=== PATIENT | female | born 1975 | race Caucasian/White ===

== ENCOUNTER → 2020-04-19 08:11 | Outpatient (CLI) | payer OTHER, SELFPAY ==
[2020-04-19 09:56] LABS: Coronavirus 19 IgG Antibody Negative (Negative); Coronavirus 19 IgM Antibody Negative (Negative)
== END ==
PROVIDERS: Visit Provider Anesthesiology
DX: Z03.818 Encounter for observation for suspected exposure to other biological agents ruled out (principal)
CPT/HCPCS: 86328

== ENCOUNTER 2020-04-29 02:46 | Emergency (ER) | payer OTHER, SELFPAY ==
[2020-04-29] VITALS (16 sets, daily range): BP systolic 92–140; BP diastolic 56–84; PULSE 50–120; RESP 13–22; TEMP 36.6–36.7; O2SAT 95–100; BMI 21.4
--- NOTE | 2020-04-29 03:00 | PC.NURSE ---
at bedside, reviewed ekg. new orders noted.
--- NOTE | 2020-04-29 03:01 | XR_ITS ---
PROCEDURE: XR CHEST 2V CLINICAL HISTORY: palpitations COMPARISON: No exams were available for comparison FINDINGS: The cardiomediastinal silhouette and pulmonary vascularity are within normal limits. There is faint increased density in both apices which are nonspecific. Stability may be confirmed with follow-up. The remaining lungs are clear. No acute bony abnormalities. IMPRESSION: Faint opacities in both lung apices nonspecific. Stability may be confirmed with follow-up. No acute finding Dictated by: Shaw Phelan MD 04/29/2020 04:58 Shaw Phelan MD in [place] 04/29/2020 04:58
--- NOTE | 2020-04-29 03:01 | ECG_ITS ---
APPROVED REPORT Exam: Resting ECG HR:54 bpm ECG Measurements Heart Rate 54 AXES WI 184 P 73 QRSd 94 QRS 73 QT 428 T 75 QTc 405 Conclusion Sinus bradycardia with sinus arrhythmia Otherwise normal ECG Electronically signed by : Rd Zhang, 04/30/2020 19:37:11
--- NOTE | 2020-04-29 03:12 | PC.NURSE ---
called smokehouse operator at request of patient to alert to er status and that she would be calling in for today
[2020-04-29 03:14] LABS: Anion Gap 12.8 mEq/L (5-15); Basophils # 0.1 K/mm3 (0-0.2); Basophils % 0.8 % (0.1-2.0); Blood Urea Nitrogen 19 mg/dl (7-17); Calcium 10.2 mg/dl (8.4-10.2); Carbon Dioxide 28 mmol/L (22.0-30.0); Chloride 103 mmol/L (98-107); Creatinine Clearance Estimated 90 mL/min (50-200); Eosinophils # 0.1 K/mm3 (0.0-0.4); Eosinophils % 1.3 % (0.1-12.0); Estimated Glomerular Filt Rate 77 ml/min (>60); GFR (African American) 93 ML/MIN (>60); Glucose 105 mg/dl (74-100); Hematocrit 46.4 % (37.0-47.0); Hemoglobin 15.9 g/dL (12.2-16.2); Lymphocytes # 5.1 K/mm3 (0.7-4.5); Lymphocytes % 59.3 % (10-50); Mean Corpuscular HGB Conc 34.4 g/dL (31.8-35.4); Mean Corpuscular Hemoglobin 33.2 pg (27.0-31.2); Mean Corpuscular Volume 96.6 fl (81-99); Mean Platelet Volume 8.4 fl (7.4-10.4); Monocytes # 0.7 K/mm3 (0.1-1.0); Monocytes % 7.6 % (1.7-9.3); Neutrophils # 2.7 K/mm3 (1.8-7.8); Neutrophils % 30.9 % (37.0-80.0); Platelet Count 235 K/mm3 (142-424); Potassium 3.8 mmoL/L (3.5-5.1); Red Cell Distribution Width 12.7 % (11.5-17.5); Sodium 140 mmol/L (136-145); White Blood Count 8.6 K/mm3 (4.8-10.8)
[2020-04-29 03:20] LABS: MANUAL DIFFERENTIAL MANUAL DIFFERENTIAL (MANUAL DIFF)
[2020-04-29 03:28] LABS: Troponin I < 0.01 ng/ml (0.00-0.034)
--- NOTE | 2020-04-29 03:28 | PC.NURSE ---
incr diltiazem to 7.5mg at this time
[2020-04-29 03:32] LABS: T4 (Thyroxine) 7.3 ug/dl (5.53-11.0)
[2020-04-29 03:39] LABS: Coronavirus 19 IgG Antibody Negative (Negative); Coronavirus 19 IgM Antibody Negative (Negative)
[2020-04-29 03:45] LABS: Lymphocytes % 65 % (10-50); Monocytes % 3 % (2-9); Neutrophils % 32 % (42-76); Platelet Estimate Normal; RBC Morphology Normal; Thyroid Stimulating Hormone 2.95 uIU/mL (0.465-4.68); Total Cells Counted 100
--- NOTE | 2020-04-29 03:49 | PC.NURSE ---
remains present at bedside. continuing to monitor cardiac status
--- NOTE | 2020-04-29 04:01 | PC.NURSE ---
incr diltiazem to 10mg at this time.
[2020-04-29 04:24] LABS: Microscopic, Urine URINE MICROSCOPIC (MICROSCOPIC)
[2020-04-29 04:28] LABS: Appearance,Urine CLEAR (Clear); Bilirubin,Urine Negative (Negative); Blood, Urine Negative (Negative); Color,Urine YELLOW (Yellow); Glucose,Urine (UA) Negative (Negative); Ketones,Urine Negative (Negative); Leukocyte Esterase,Urine Negative (Negative); Nitrate,Urine Negative (Negative); Protein,Urine Negative (Negative); Urobilinogen,Urine 0.2 EU/dl (0.2)
--- NOTE | 2020-04-29 04:54 | HMH.EDARPALP ---
ED Disposition Clinical Impression: Atrial fibrillation Qualifiers: Atrial fibrillation type: unspecified Qualified Code(s): I48.91 - Unspecified atrial fibrillation Atrial flutter Qualifiers: Atrial flutter type: unspecified Qualified Code(s): I48.92 - Unspecified atrial flutter Disposition: Home, Self-Care Condition on Discharge: Good Instructions: DI for Atrial Flutter Additional Instructions: use meds and see pcp and card for follow up Referrals: Shane Hall MD [Primary Care Provider] - Ebenezer Negrete MD [Staff Physician] - - Critical Care Critical Care Time: No Attestation: On 04/29/20, the high probability of a clinically significant, sudden or life threatening deterioration of the following system(s) required my full and direct attention, intervention and personal management. The time I documented below is in addition to time spent performing reported procedures but includes the following listed in this critical care notation. Medical Decision Making - Medical Records Medical records reviewed: Yes: I reviewed the patient's medical records. - Basil Inquiry Pt receiving controlled substance: No Vital Signs: 04/29/20 02:47 04/29/20 03:00 04/29/20 03:47 Temperature 98.1 F Temperature Source Oral Pulse Rate [Left Radial] 120 H 91 H 100 H Respiratory Rate 17 22 14 Blood Pressure [Right Arm] 140/84 132/78 121/69 Blood Pressure Mean [Right Arm] 102 96 86 Blood Pressure Source [Right Arm] Automatic Cuff Automatic Cuff Automatic Cuff Blood Pressure Position [Right Arm] Sitting Sitting Sitting 02 Sat by Pulse Oximetry 100 100 100 Oxygen Delivery Method Room Air Room Air 04/29/20 04:06 04/29/20 04:30 04/29/20 05:00 Temperature Temperature Source Pulse Rate [Left Radial] 112 H 107 H 81 Respiratory Rate 14 14 14 Blood Pressure [Right Arm] 110/73 109/66 L 101/65 L Blood Pressure Mean [Right Arm] 85 80 77 Blood Pressure Source [Right Arm] Automatic Cuff Blood Pressure Position [Right Arm] 02 Sat by Pulse Oximetry 98 96 95 Oxygen Delivery Method Room Air 04/29/20 05:30 04/29/20 06:00 04/29/20 06:30 Temperature Temperature Source Pulse Rate [Left Radial] 84 111 H 92 H Respiratory Rate 16 16 17 Blood Pressure [Right Arm] 109/74 L 114/83 111/62 Blood Pressure Mean [Right Arm] 85 93 78 Blood Pressure Source [Right Arm] Automatic Cuff Automatic Cuff Automatic Cuff Blood Pressure Position [Right Arm] Sitting Sitting Sitting 02 Sat by Pulse Oximetry 97 98 98 Oxygen Delivery Method Room Air Room Air Room Air 04/29/20 08:00 04/29/20 09:25 04/29/20 09:52 Temperature Temperature Source Pulse Rate [Left Radial] 83 56 L 52 L Respiratory Rate 20 14 Blood Pressure [Right Arm] 109/78 L 97/63 L 103/64 L Blood Pressure Mean [Right Arm] 88 74 77 Blood Pressure Source [Right Arm] Automatic Cuff Automatic Cuff Automatic Cuff Blood Pressure Position [Right Arm] Sitting Sitting Sitting 02 Sat by Pulse Oximetry 98 96 95 Oxygen Delivery Method Room Air Room Air Room Air - Lab Data Lab results reviewed: Yes: I reviewed the patient's lab results. Lab Results 04/29/20 02:55: WBC 8.6, RBC 4.80, Hgb 15.9, Hct 46.4, MCV 96.6, MCH 33.2 H, MCHC 34.4, RDW 12.7, Plt Count 235, MPV 8.4, Neut % (Auto) 30.9 L, Lymph % (Auto) 59.3 H, [place] % (Auto) 7.6, Eos % (Auto) 1.3, Baso % (Auto) 0.8, Neut # (Auto) 2.7, Lymph # (Auto) 5.1 H, [place] # (Auto) 0.7, Eos # (Auto) 0.1, Baso # (Auto) 0.1, Total Counted 100, Neutrophils % (Manual) 32 L, Lymphocytes % (Manual) 65 H, Monocytes % (Manual) 3, Platelet Estimate Normal, RBC Morphology Normal 04/29/20 02:55: Sodium 140, Potassium 3.8, Chloride 103, Carbon Dioxide 28, Anion Gap 12.8, BUN 19 H, Creatinine 0.80, Estimated Creat Clear 90, Estimated GFR 77, Est GFR ( Amer) 93, Glucose 105 H, Calcium 10.2, Troponin I < 0.01, TSH 2.95, Thyroxine (T4) 7.3 04/29/20 02:55: SARS-CoV-2 IgG Ab (Rapid) Negative, SARS-CoV-2 IgM Ab (Rapid) Negative 04/29/20 02:
[2020-04-29 04:56] LABS: Squamous Epithelial Cell,Urine Occasional #/hpf (0-5)
--- NOTE | 2020-04-29 05:00 | PC.NURSE ---
increased diltiazem to 12.5 mg
[2020-04-29 05:01] LABS: Barbiturates Screen,Urine Negative ng/ml (<200); Benzodiazepines Screen,Urine Negative ng/ml (<200)
[2020-04-29 05:02] LABS: Cocaine Screen,Urine Negative ng/ml (<300)
[2020-04-29 05:03] LABS: Methadone Screen,Urine Negative ng/ml (<300)
[2020-04-29 05:04] LABS: Cannabinoid Screen,Urine Negative ng/ml (<50); Phencyclidine Screen,Urine Negative ng/ml (<25)
[2020-04-29 05:05] LABS: Opiate Screen,Urine Negative ng/ml (<300)
[2020-04-29 05:07] LABS: Amphetamine/Metha Screen,Urine Negative ng/ml (<1000)
--- NOTE | 2020-04-29 07:25 | PC.NURSE ---
incr to 15 mg
--- NOTE | 2020-04-29 07:30 | PC.NURSE ---
cv lab at bedside. echo in progress. lab at bedside. additional blood sent up.
--- NOTE | 2020-04-29 07:56 | PC.NURSE ---
KADEN GAN placed new orders on pt, notified lab
--- NOTE | 2020-04-29 07:58 | PC.NURSE ---
KADEN GAN sent EKG to Dr. Negrete at this time
--- NOTE | 2020-04-29 08:00 | CA_ITS ---
APPROVED REPORT EXAM: Comprehensive 2D, Doppler, and color-flow Echocardiogram Legal Executive Assistant: Ashlyn DesouzaCOURTNEY Ht: 5 ft 9 in Wt: 145lbs BSA: 1.80 BP: 120/69 mmHg Indications: a-fib/flutter,palps,anxiety 2D Dimensions LVOT 1.70 cm (M/F) 1.5-2.5 M-Mode Dimensions RVDd 2.38 cm (0.9-2.6) LA Diam 3.40 cm (1.9-4.0) LVDd 4.35 cm (3.5-5.7) Ao Diam 2.72 cm (2.0-3.7) LVDs 3.00 cm (3.5-5.7) IVSd 1.00 cm (0.6-1.1) PWd 0.59 cm (0.6-1.1) EF (Teich) 59.00% FS 31.00% EDV (Teich) 85.40 mL ESV (Teich) 35.00 mL Pulmonary Valve PV Peak Velocity 79.00 (50-150 cm/s) Tricuspid Valve TR P. Velocity 222.00 cm/s Left Ventricle Left atrium is normal size, left ventricle is normal size, visually estimated ejection fraction 50% with no regional wall motion abnormality, diastolic parameters are inconclusive. Right Ventricle Right atrium and right ventricle are normal size and contractility. Aortic Valve Aortic valve is minimally thickened and fibrosed, there is no aortic stenosis or aortic insufficiency. Mitral Valve Mitral valve is grossly normal, there is trace mitral regurgitation. Tricuspid Valve Tricuspid valve is grossly normal, there is trace tricuspid regurgitation. Tricuspid regurgitation jet velocity is inadequate for calculation of the right ventricular systolic pressure. Pulmonic Valve Pulmonic valve is poorly visualized. Great Vessels Aortic root is normal size. Pericardium No significant pericardial effusion noted. Conclusion 1. Normal left ventricular size, preserved left ventricular systolic function, visually estimated ejection fraction 50% with no regional wall motion abnormality. 2. Trace mitral and tricuspid regurgitation. 3. No significant pericardial effusion noted. Electronically signed by : Alex Shafer, 04/30/2020 05:44:20
--- NOTE | 2020-04-29 08:01 | PC.NURSE ---
ER MD gave verbal order for Metoprolol 5mg IV once.
[2020-04-29 08:16] LABS: Troponin I < 0.01 ng/ml (0.00-0.034)
--- NOTE | 2020-04-29 08:18 | PC.NURSE ---
Pt tolerated metoprolol push. States she feels some better after pushing the medicine
--- NOTE | 2020-04-29 08:28 | PC.NURSE ---
Cardiology SENIOR PARTNER in with pt at this time
[2020-04-29 08:36] LABS: C-Reactive Protein 0.3 mg/L (0-4)
[2020-04-29 08:47] LABS: Erythrocyte Sedimentation Rate 6 mm/hr (0-20)
[2020-04-29 08:54] LABS: Procalcitonin < 0.030 ng/mL (0.0-2.0)
--- NOTE | 2020-04-29 09:15 | PC.NURSE ---
spoke with Dr. Hall, he was wanting an update on pt. Notified him of the place from cardiology.
--- NOTE | 2020-04-29 09:22 | PC.NURSE ---
ELHAM SUE W/CARDIOLOGY CAME AND SEEN PT WE ARE GONNA GIVE DILTIAZEM 240MG PO AND XARELTO 20MG PO AFTER 1 HR WE ARE GONNA STOP HER DRIP THEN WATCH PT FOR 2 HRS THEN DISCHARGE . PT IS TO COME INTO CARDIOLOGY OFFICE AT 9AM ON 04/30
--- NOTE | 2020-04-29 09:50 | PC.NURSE ---
BREAKFAST TRAY ORDERED
--- NOTE | 2020-04-29 10:14 | PC.NURSE ---
DRIP TO BE D/C'D AT 1110
--- NOTE | 2020-04-29 10:19 | PC.NURSE ---
Pt converted to NSR at this time on monitor
--- NOTE | 2020-04-29 10:45 | PC.NURSE ---
diltiazem stopped. Bag empty at this time.
--- NOTE | 2020-04-29 10:46 | PC.NURSE ---
Lab at bedside
--- NOTE | 2020-04-29 11:49 | HMH.CNCARD ---
History of Present Illness Consult date: 04/29/20 Requesting physician: Heladio Hall Consult reason: atrial fibrillation Chief complaint: palpitations Additional Medical History:: 1. New onset of Atrial fibrillation/Flutter (04/29/2020) 2. Dyspnea (04/29/2020) 3. Hx of MVP (as a teen) 4. Mild Pericardial effusion (per Echo 04/29/2020) History of present illness: 45 year old female presented to the Ed for increase palpitations and fluttery feeling in chest for the past few hours. Pt stated the fluttery feeling would not ease up and she became very concerned. Pt stated increase shortness of breath with the palpitations. Denied chest pain, tightness or pressure. Denies fever, nausea or vomiting. New onset Atrial fib/A flutter, pt was started on Cardizem drip at 10mg/hr and one dose of Metroprolol 5mg given IVP. Initial workup performed in the ED. New onset Atrial fibrillation/flutter with RVR. Heart rate 120's. Preliminary echo revealed Mild percardial effusion. EF 60%. CXR revealed no acute finding. Lab work was unremarkable. Upon this assessment, EKG revealed atrial fib at controlled rate. BP stable. Pt denies chest pain, tightness or pressure. Pt denies shortness of breath. at bedside. Discuss plan of care with Dr. Negrete. Recommended to start Dilitazem CD 240mg daily po and stop the Cardizem drip one hour after the po dose of Diltiazem. Recommend starting Xarelto 20mg due to new onset atrial fib/flutter. Heart rate is controlled at this time. Pt may be discharged later today pending on how pt's responds to treatment. Pt verbalized understanding of treatment. Explained the importance of taking Xarelto due to decrease the risk of stroke due to new onset of atrial fib/flutter. Pt verbalized understanding. Thank you for letting Cardiology participate in the care of this pt. [facility] History I have reviewed the patient's past medical history: Yes Medical History: Reports:: Anxiety, Depression Denies:: Diabetes Mellitus Type 2, Hyperlipidemia, Hypertension, Seizures *Have you ever received a pneumonia vaccine?: No *Have you received a flu vaccine this season?: Yes Other Surgeries: Yes: No Previous Surgery Amputation: No Fractures: No - *Social History Smoking Status: Never smoker Alcohol Intake: never Substance Use Type: denies use *Occupational Status:: employed *Travel in the last 8 weeks: None - Psychiatric History Pschychiatric History:: Reports:: Anxiety, Depression Family Hx:: Diabetes, Hyperlipidemia, Hypertension Meds Home Medications Medication Instructions Recorded Confirmed Type Sertraline HCl 25 mg PO DAILY 04/29/20 04/29/20 History Allergies Allergy/AdvReac Type Severity Reaction Status Date / Time No Known Allergies Allergy Verified 07/13/18 10:03 Exam Vital signs and Labs for Last 24 Hours: Temp Pulse Resp BP Pulse Ox 98.1 F 52 L 14 92/56 L 97 04/29/20 02:47 04/29/20 10:46 04/29/20 09:52 04/29/20 10:46 04/29/20 10:46 Laboratory Results - last 24 hr 04/29/20 02:55: WBC 8.6, RBC 4.80, Hgb 15.9, Hct 46.4, MCV 96.6, MCH 33.2 H, MCHC 34.4, RDW 12.7, Plt Count 235, MPV 8.4, Neut % (Auto) 30.9 L, Lymph % (Auto) 59.3 H, [place] % (Auto) 7.6, Eos % (Auto) 1.3, Baso % (Auto) 0.8, Neut # (Auto) 2.7, Lymph # (Auto) 5.1 H, [place] # (Auto) 0.7, Eos # (Auto) 0.1, Baso # (Auto) 0.1, Total Counted 100, Neutrophils % (Manual) 32 L, Lymphocytes % (Manual) 65 H, Monocytes % (Manual) 3, Platelet Estimate Normal, RBC Morphology Normal 04/29/20 02:55: Sodium 140, Potassium 3.8, Chloride 103, Carbon Dioxide 28, Anion Gap 12.8, BUN 19 H, Creatinine 0.80, Estimated Creat Clear 90, Estimated GFR 77, Est GFR ( Amer) 93, Glucose 105 H, Calcium 10.2, Troponin I < 0.01, TSH 2.95, Thyroxine (T4) 7.3 04/29/20 02:55: SARS-CoV-2 IgG Ab (Rapid) Negative, SARS-CoV-2 IgM Ab (Rapid) Negative 04/29/20 02:55: ESR 6 04/29/20 04:18: Urine Color Yellow, Urine Appearance Clear, Urine pH 8.0, Ur Specif
--- NOTE | 2020-04-29 12:27 | PC.NURSE ---
just spoke with ELHAM SUE PT'S 2 HOUR CLEOPATRA AFTER DRIP BEING DC'D IS ALMPOST UP SHE IS GONNA COME BACK AND SEE HER AND GET HER READY FOR DISCHARGE
--- NOTE | 2020-04-29 12:28 | PC.NURSE ---
Pt sitting up eating at this time.
--- NOTE | 2020-04-29 13:13 | PC.NURSE ---
Pt has appointment with Dr Negrete tomorrow morning at 0900
[2020-04-29 18:41] LABS: Troponin I < 0.01 ng/ml (0.00-0.034)
== END 2020-04-29 13:27 | disposition home or self-care (01) ==
PROVIDERS: Emergency Provider Emergency Medicine; PCP Family Medicine
DX: I48.91 Unspecified atrial fibrillation (principal); I48.92 Unspecified atrial flutter; F41.8 Other specified anxiety disorders; Z01.84 Encounter for antibody response examination; Z79.899 Other long term (current) drug therapy
CPT/HCPCS: 36415; 71046; 80048; 80305; 81001; 84145; 84436; 84443; 84484; 85007; 85025; 85651; 86140; 86328; 93005; 93306; 96365; 96367; 96375; 99284

== ENCOUNTER → 2020-05-02 09:18 | Outpatient (CLI) | payer OTHER, SELFPAY ==
--- NOTE | 2020-05-02 09:19 | CA_ITS ---
APPROVED REPORT Exam: Exercise Treadmill Technologist: Kenia Fields, Ht: 5 ft 9 in Wt: 142 lbs BSA: 1.79 m2 HR: 85 bpm BP: 120/75 mmHg Rhythm: NSR,RIGHTWARD AXIS Medical History Medical History: Atrial Fibrillation Medications: XaRELTO,,,,, Deltiazem,,,,, SertraliINE,,,,, Allergies: No known drug allergies Stress Test Details Test: Alicia HR Resting HR: 67 bpm Max Heart Rate (APMHR): 173 bpm Max HR Achieved: 168 bpm Target HR (85% APMHR): 147 bpm % of APMHR: 97 Recovery HR: 144 bpm BP Resting BP: 124.0/83.0 mmHg Max BP: 148.0/80.0 mmHg Recovery BP: 128.0/74.0 mmHg ECG Resting ECG: NSR,RIGHTWARD AXIS Clinical Exercise duration: 10:02 min Highest Stage Achieved: Exercise capacity: 12.8 METs Stress ECG Conclusion PATIENT EXERCISED 10:02 ON ALICIA PROTOCOL. MAX HR 168 BPM WHICH IS 97% OF PM FOR AGE. MAX BP 148/80. METS = 12.8. TEST STOPPED DUE TO SOA AND FATGUE. NO ARRHYTHMIAS/ECTOPY. NORMAL ST RESPONSE TO EXERCISE. NORMAL GXT. GXT ONLY(NO IMAGING) Test Summary REST . . . . . . . Sitting REST . . . . . . . Standing REST 03:59 0.0 0.0 67 . 124/ 83 . . Stage 1 01:00 10.0 1.7 89 . . . . Stage 1 02:00 10.0 1.7 93 . . . . Stage 1 03:00 10.0 1.7 88 . . . . Stage 2 01:00 12.0 2.5 106 . . . . Stage 2 02:00 12.0 2.5 108 . . . . Stage 2 03:00 12.0 2.5 112 . 132/ 70 . . Stage 3 01:00 14.0 3.4 126 . . . . Stage 3 02:00 14.0 3.4 138 . . . . Stage 3 03:00 14.0 3.4 142 . 148/ 80 . . Stage 4 01:00 16.0 4.2 165 . . . . Stage 4 01:02 16.0 4.2 166 . . . Stop exercise at 10:02 RECOVERY 01:00 0.0 0.0 134 . . . . RECOVERY 02:00 0.0 0.0 102 . 128/ 74 . . RECOVERY 03:00 0.0 0.0 86 . 143/ 77 . . RECOVERY 04:00 0.0 0.0 82 . 126/ 74 . . RECOVERY 05:00 0.0 0.0 80 . 113/ 78 . . RECOVERY 05:19 0.0 0.0 73 . 113/ 78 . . Electronically signed by : Alex Shafer, 05/02/2020 12:13:12
== END ==
PROVIDERS: PCP Family Medicine; Visit Provider Nurse Practitioner Family
DX: R07.9 Chest pain, unspecified (principal); R94.31 Abnormal electrocardiogram [ECG] [EKG]; I48.0 Paroxysmal atrial fibrillation
CPT/HCPCS: 93017

== ENCOUNTER → 2020-11-28 13:54 | Outpatient (CLI) | payer OTHER, SELFPAY ==
--- NOTE | 2020-11-28 13:58 | XR_ITS ---
PROCEDURE: XR CERVICAL SPINE 5V CLINICAL INDICATION: NECK PAIN, DISORDER OF NECK COMPARISON: No exams were available for comparison FINDINGS: No fracture or dislocation. No lytic or blastic change. There is normal mineralization. Normal alignment. There is degenerative disc disease at C5-C6 with minimal endplate osteophytes. There is minimal foraminal narrowing bilaterally at C5-C6 from uncovertebral hypertrophy Other findings:None. IMPRESSION: Mild degenerative disc disease C5-C6 with mild bilateral foraminal narrowing Dictated by: Shaw Phelan MD 11/28/2020 14:24 Shaw Phelan MD in [place] 11/28/2020 14:24
== END ==
PROVIDERS: PCP Family Medicine; Visit Provider Family Medicine
DX: M54.2 Cervicalgia (principal); M53.82 Other specified dorsopathies, cervical region
CPT/HCPCS: 72050

== ENCOUNTER 2021-05-26 09:22 | Emergency (ER) | payer OTHER, SELFPAY ==
[2021-05-26 09:50] VITALS: BP 138/78; PULSE 62; RESP 18; TEMP 36.6; O2SAT 98; BMI 22.1
--- NOTE | 2021-05-26 10:16 | HMH.EDUTC ---
[facility] Dis[place] Clinical Impression: Viral upper respiratory illness Disposition: Home, Self-Care Condition on Discharge: Good Instructions: Sore Throat, DI for Viral Upper Respiratory Infection -- Adult Additional Instructions: *Monitor Temp, Over the counter Motrin or Tylenol as directed/as needed Tylenol every 4 hours and Motrin every 6 hours (as long as your family doctor has told you that you can take it) for fever or pain. and straight to ER if unable to lower temp less than 101.0 after medication given *Warm salt water gargles may help to soothe the throat *Throat Lozenges *Warm fluids like tea with honey may help to soothe the throat *Sleep elevated *Humidifier/Vaporizer *Flonase 2 sprays in each nostril daily but be aware that it may take 2-3 days before you notice improvement *Bromfed may cause drowsiness. Know how it effects you (your child) before driving, caring for small child, or sending your child to school. Not other antihistamines/allergy medications while taking bromfed Your throat swab was sent for culture. Those results are typically sent to your primary care. Be sure to follow up in 2-3 days with your family doctor/primary care physician if no improvement so they can review those result and treat if necessary. If you don?t have a primary care doctor, I recommend you get one but in the mean time, you will have to return to a walk in clinic Follow up IMMEDIATELY for new or worsening symptoms or no Noticeable improvement over the next 48-72 hours. 911 for difficulty breathing or swallowing Referrals: Shane Hall MD [Primary Care Provider] - As needed Time of Disposition: 11:01 Medical Decision Making - Basil Inquiry Pt receiving controlled substance: No Basil was queried for this patient: No Vital Signs: 05/26/21 09:50 Temperature 97.9 F Temperature Source Oral Pulse Rate [Right Brachial] 62 Respiratory Rate 18 Blood Pressure [Right Arm] 138/78 Blood Pressure Mean [Right Arm] 98 Blood Pressure Source [Right Arm] Automatic Cuff Blood Pressure Position [Right Arm] Sitting 02 Sat by Pulse Oximetry 98 Oxygen Delivery Method Room Air - Lab Data Lab results reviewed: Yes: I reviewed the patient's lab results. Lab Results 05/26/21 10:05: Strep Scn Rapid Clinic Negative 05/26/21 10:05: SARS-CoV-2 (PCR) Not detected, Influenza A Untype (PCR) Not detected, Influenza Type B (PCR) Not detected Orders (Tests/Meds): ORDERS Category Date Time Status Strep Screen Confirmation Stat Micro 05/26/21 10:05 Received [facility] HPI - General Stated complaint: sore throat Time Seen by Provider: 05/26/21 10:16 Mode of Arrival: Ambulatory Source of Information: Patient Limitations: No Limitations Description of Symptoms (Recalled from Triage Doc. by RN): PATIENT C/O SORE THROAT THAT STARTED LAST NIGHT HEENT Symptoms (Recalled from RN notes): Yes Resp Symptoms (Recalled from RN notes): No Skin Symptoms (Recalled from RN notes): No MS Symptoms (Recalled from RN notes): No Functional Status (Recalled from RN notes): WNL - History of Present Illness Provider Complaint: Patient state that she started having sore scratchy throat last night States that it has continued to get worse State that she has not been around anyone that she knows of with strep throat but this morning when her throat was still hurting she came in to get checked - Related Data Home Medications Medication Instructions Recorded Confirmed Sertraline HCl 25 mg PO DAILY 04/29/20 03/04/21 calcium carbonate 600 mg-vitamin 1 tab PO DAILY 02/19/21 03/04/21 D3 5 mcg (200 unit) tablet eutyvznh-cix-dmix 18 mg-FA 400 tab PO 02/19/21 03/04/21 mcg-calcium 500 mg-vit K 50 mcg tablet Previous Rx's Medication Instructions Recorded estradiol 10 mcg vaginal tablet 10 mcg VAGINAL .COMPLEX 30 Days #8 02/19/21 tab diltiazem HCl 120 mg 120 mg PO DAILY #90 cap 03/04/21 capsule,extended release 24 hr rivaroxaban 20 mg ta
[2021-05-26 10:27] LABS: Coronavirus 19, PCR Not Detected (NotDetected); Influenza A, PCR Not Detected (NotDetected); Influenza B, PCR Not Detected (NotDetected); UTC Strep Screen (Rapid) Negative (Negative)
[2021-05-26 11:03] VITALS: BP 138/78; PULSE 62; RESP 18; TEMP 36.6; O2SAT 98
== END 2021-05-26 11:06 | disposition home or self-care (01) ==
PROVIDERS: Emergency Provider Nurse Practitioner; PCP Family Medicine
DX: J06.9 Acute upper respiratory infection, unspecified (principal); I48.91 Unspecified atrial fibrillation; Z20.822 Contact with and (suspected) exposure to COVID-19; F41.8 Other specified anxiety disorders
CPT/HCPCS: 87880; 99203; C9803; G0463; U0003; U0005

== ENCOUNTER → 2022-08-10 15:33 | Outpatient (CLI) | payer OTHER, SELFPAY | PROVIDERS: PCP Family Medicine; Visit Provider Nurse Practitioner | DX: R07.9 Chest pain, unspecified (principal); R00.2 Palpitations; I48.0 Paroxysmal atrial fibrillation; R00.1 Bradycardia, unspecified; R94.31 Abnormal electrocardiogram [ECG] [EKG] | CPT/HCPCS: 93270 ==

== ENCOUNTER → 2022-08-17 06:40 | Outpatient (CLI) | payer OTHER, SELFPAY ==
--- NOTE | 2022-08-17 06:40 | CA_ITS ---
APPROVED REPORT Exam: Exercise Treadmill Technologist: Marlene Morris Ht: 5 ft 9 in Wt: 151 lbs BSA: 1.83 m2 HR: 54 bpm BP: 121/72 mmHg Indications: Chest pain Medical History Medications: Sertraline,,,,, DilTiazem,,,,, RIvaROXABAN,,,,, Stress Test Details Test: [place]ko HR Resting HR: 65 bpm Max Heart Rate (APMHR): 171.790691 bpm Max HR Achieved: 165 bpm Target HR (85% APMHR): 145.261668 bpm % of APMHR: 96.49 Recovery HR: 80 bpm BP Resting BP: 121.0/72.0 mmHg Max BP: 160.0/82.0 mmHg Recovery BP: 142.0/67.0 mmHg ECG Clinical Exercise duration: 06:01 min Highest Stage Achieved: Exercise capacity: 10.1 METs Stress ECG Conclusion Target at 5:00 Symptoms: Shortness of air. No chest pain Arrhythmias/Ectopy: None ST-T Changes: <1.[address] changes. Test Summary REST . . . . . . . Sitting REST . . . . . . . Standing REST 18:49 0.0 0.0 65 . 121/ 72 . . Stage 1 01:00 10.0 1.7 83 . . . . Stage 1 02:00 10.0 1.7 94 . 128/ 70 . . Stage 1 02:09 10.0 1.7 99 . 128/ 70 . . Stage 2 01:00 12.0 2.5 112 . . . . Stage 2 01:59 12.0 2.5 118 . 140/ 78 . . Stage 3 . . . . . . . Myoview Injected Stage 3 01:00 14.0 3.4 147 . . . . Stage 3 01:53 14.0 3.4 165 . . . Stop exercise at 06:01 RECOVERY 01:00 0.0 0.0 138 . 160/ 82 . . RECOVERY 02:00 0.0 0.0 103 . 160/ 82 . . RECOVERY 03:00 0.0 0.0 86 . 147/ 74 . . RECOVERY 03:54 0.0 0.0 78 . 142/ 67 . . Electronically signed by : Alex Shafer MD 08/17/2022 10:54:46
--- NOTE | 2022-08-17 06:40 | CA_ITS ---
APPROVED REPORT EXAM: Comprehensive 2D, Doppler, and color-flow Echocardiogram [employer] Laboratory Director: Zahra Elkins, RCS, RVS Ht: 5 ft 9 in Wt: 151lbs BSA: 1.83 BP: 122/77 mmHg Indications: CP, ABN EKG, HX-PAF 2D Dimensions Aortic Root 2.64 cm LA Volume 14.50 mL Left Atrium 1.85 cm LA Volume Index 7.70 mL/m2 (M/F) 16-34 LVOT 1.77 cm (M/F) 1.5-2.5 M-Mode Dimensions RVDd 2.65 cm (0.9-2.6) LA Diam 3.36 cm (1.9-4.0) LVDd 4.92 cm (3.5-5.7) Ao Diam 3.16 cm (2.0-3.7) LVDs 3.18 cm (3.5-5.7) IVSd 0.80 cm (0.6-1.1) PWd 0.84 cm (0.6-1.1) EF (Teich) 64.60% EPSs 0.10 cm FS 35.40% EDV (Teich) 113.90 mL TAPSE 2.77 (<1.7) ESV (Teich) 40.30 mL LV Diastology E Decel Time 323.00 (160-240 msec) E/A Ratio 1.59 MED E' 13.20 (< 7 cm/sec) MED A' 9.90 cm/s E'/MED E' Ratio 6.13 (>14) LAT E' 11.10 (<10 cm/sec) LAT A' 10.20 cm/s E/LAT E' Ratio 7.29 (>14) Aortic Valve LVOT Max 117.00 (70-110 cm/s) LVOT VTI 22.16 cm AoV Peak Srini. 137.00 (50-130 cm/s) AO Peak GR. 7.50 mmHg AO Mean GR. 3.70 (<5 mmHg) AO VTI 27.68 (18-25 cm) TIKI (VTI) 1.97 (2.5-4.5 cm2) Mitral Valve MV A Velocity 51.00 (40-130 cm/s) E/A Ratio 1.59 MV Decel. Time 323.00 (160-240 ms) Pulmonary Valve PV Peak Velocity 89.00 (50-150 cm/s) Tricuspid Valve TR P. Velocity 200.00 cm/s RAP Estimate 10.00 mmHg RVSP 26.00 mmHg Left Ventricle Left atrium is normal size left ventricle is normal size, estimated ejection fraction 55% with no regional wall motion abnormality, diastolic parameters are within normal range. Right Ventricle Right atrium right ventricular normal size and contractility. Aortic Valve Aortic valve is grossly normal there is no aortic stenosis aortic insufficiency. Mitral Valve Mitral valve is grossly normal, there is no significant mitral regurgitation. Tricuspid Valve Tricuspid valve grossly normal, there is no significant tricuspid regurgitation. Pulmonic Valve Pulmonic valve is poorly visualized. Great Vessels Aortic root is normal size. Inferior vena cava is normal size with normal inspiratory collapse. Pericardium Small pericardial effusion and anterior echo-free space seen. Conclusion 1. Normal left ventricular size preserved left ventricular systolic function, estimated ejection fraction 55% with no regional wall motion abnormality, diastolic parameters are within normal range. 2. Small pericardial effusion and anterior echo-free space seen. 3. Inferior vena cava is normal size with normal inspiratory collapse. Electronically signed by : Alex Shafer MD 08/18/2022 06:03:50
--- NOTE | 2022-08-17 06:40 | NM_ITS ---
APPROVED REPORT Exam: Nuclear Stress Test Indication: DYSRHYTHMIA, A-FIB, C.P., PALPITATIONS Patient Location: Outpatient Stress Tech: Marlene Morris CT Tech:Brigida Ventura ARRPablo RT (R)(N)(M) Ht: 5 ft 9 in Wt: 147 lbs Bra Size: B HR: 54 bpm BP: 121/72 mmHg BSA: 1.81 m2 TID: 1.05 BMI: 21.7 History: DYSRHYTHMIA, A-FIB, C.P., PALPITATIONS Procedure: Patient exercised on Cheko protocol 6:00 minutes and sec, resting heart rate 54 bpm, resting blood pressure 121/72 mmHg, with exercise maximum heart rate achived was 165 bpm which is 96 % of the maximum predicted heart rate and blood pressure was 160/83 mmHg. Test was stopped due to FATIGUE, SOA. Patient has Good exercise capacity, achieved 10.1 METs of workload on treadmill, the blood pressure response to exercise was Adequate. Electrocardiogram Resting electrocardiogram shows sinus rhythm, with exercise there is less than 1.[address] segment depression noted from the baseline EKG. The EKG portion of the exercise Myoview is negative for ischemia. Cardiac Stress and Resting SPECT Images: Cardiac Stress and Resting SPECT images were obtained using technetium 99m Myoview 31.3 mCi stress and 10.19 mCi at rest. Gated SPECT analysis of segmental wall motion and calculation of the ejection fraction also done. Prone images were also obtained. Cardiac stress and rest SPECT images show uniform myocardial activity without segmental perfusion abnormality, computer derived ejection fraction is 55% with no regional wall motion abnormality, right ventricle is normal size and contractility. Conclusion: 1. The EKG portion of the exercise Myoview is negative for ischemia, patient has good exercise capacity achieved 10.1 METs of workload on treadmill, the blood pressure response to exercise was adequate, there was no exercise-induced chest discomfort. 2. No scintigraphic evidence of reversible ischemia seen, computer derived ejection fraction 55% with no regional wall motion abnormality, right ventricle is normal size and contractility. 3. Normal exercise Myoview study. Electronically signed by : Alex Shafer MD 08/17/2022 10:59:26
== END ==
PROVIDERS: PCP Family Medicine; Visit Provider Nurse Practitioner
DX: R07.9 Chest pain, unspecified (principal); R00.2 Palpitations; R00.1 Bradycardia, unspecified; I48.0 Paroxysmal atrial fibrillation; R94.31 Abnormal electrocardiogram [ECG] [EKG]
CPT/HCPCS: 78452; 93017; 93306; A9502

== ENCOUNTER → 2022-09-02 15:13 | Outpatient (CLI) | payer OTHER, SELFPAY | PROVIDERS: PCP Family Medicine; Visit Provider Nurse Practitioner Family | DX: R07.9 Chest pain, unspecified (principal); I31.39 Other pericardial effusion (noninflammatory); I48.0 Paroxysmal atrial fibrillation | CPT/HCPCS: 93308 ==

== ENCOUNTER → 2022-11-26 06:40 | Outpatient (CLI) | payer OTHER, SELFPAY ==
[2022-11-26 07:28] LABS: Basophils % 0.7 % (0.1-2.0); Eosinophils # 0.1 K/mm3 (0.0-0.4); Hematocrit 40.2 % (37.0-47.0); Hemoglobin 13.2 g/dL (12.2-16.2); Lymphocytes # 2.5 K/mm3 (0.7-4.5); Mean Corpuscular HGB Conc 32.8 g/dL (31.8-35.4); Mean Corpuscular Hemoglobin 31.7 pg (27.0-31.2); Mean Corpuscular Volume 96.9 fl (81-99); Mean Platelet Volume 8.2 fl (7.4-10.4); Monocytes # 0.4 K/mm3 (0.1-1.0); Monocytes % 5.6 % (1.7-9.3); Neutrophils # 3.3 K/mm3 (1.8-7.8); Neutrophils % 51.7 % (37.0-80.0); Platelet Count 227 K/mm3 (142-424); Red Blood Count 4.15 M/mm3 (4.20-5.40); Red Cell Distribution Width 12.5 % (11.5-17.5); White Blood Count 6.4 K/mm3 (4.8-10.8)
[2022-11-26 08:12] LABS: Alanine Aminotransferase 17 U/L (12-78); Albumin Level 4.2 g/dl (3.5-5.0); Albumin/Globulin Ratio 1.8 (1.1-1.8); Alkaline Phosphatase 49 U/L (38-126); Anion Gap 8.4 mEq/L (5-15); Aspartate Amino Transferase 25 U/L (14-36); Bilirubin,Total 0.7 mg/dl (0.2-1.3); Blood Urea Nitrogen 16 mg/dl (7-17); Calcium 8.9 mg/dl (8.4-10.2); Carbon Dioxide 29 mmol/L (22.0-30.0); Chloride 104 mmol/L (98-107); Chol/HDL Ratio 1.8 (1-3.5); Cholesterol 147 mg/dl (140-200); Estimated Glomerular Filt Rate 76 ml/min (>60); GFR (African American) 92 ML/MIN (>60); Globulin 2.3 g/dL (1.3-3.2); Glucose 83 mg/dl (74-100); HDL Cholesterol 83 mg/dl (40-60); Potassium 4.4 mmoL/L (3.5-5.1); Sodium 137 mmol/L (136-145); Total Protein,Serum 6.5 g/dl (6.3-8.2); Triglycerides 57 mg/dl (30-150); VLDL Cholesterol 11 mg/dL (0-40)
[2022-11-26 08:23] LABS: Direct LDL Cholesterol 57.35 mg/dL (100-129)
[2022-11-26 08:28] LABS: 25-OH Vitamin D, Total 40.4 ng/mL (30-100)
[2022-11-26 08:30] LABS: Free Thyroxine Index 2.3 ug/dL (5.93-13.13); T4 (Thyroxine) 7.6 ug/dl (5.53-11.0); Triiodothryronine (T3) Uptake 30 % (23.5-40.5)
[2022-11-26 08:43] LABS: Thyroid Stimulating Hormone 1.29 uIU/mL (0.465-4.68)
[2022-11-27 14:28] LABS: FSH 59.2 mIU/mL (.); LH 40.7 mIU/mL (.)
== END ==
PROVIDERS: PCP Family Medicine; Visit Provider Nurse Practitioner Obstetrics & Gynecology
DX: R53.83 Other fatigue (principal); Z79.899 Other long term (current) drug therapy
CPT/HCPCS: 36415; 80053; 80061; 82306; 83001; 83002; 84436; 84443; 84479; 85025

== ENCOUNTER → 2023-04-12 11:27 | Outpatient (CLI) | payer OTHER, SELFPAY ==
--- NOTE | 2023-04-12 11:31 | XR_ITS ---
FINAL REPORT CLINICAL HISTORY: RT WRIST PAIN COMPARISON: None FINDINGS: RIGHT WRIST Three views demonstrate no acute fracture or dislocation. The visualized joint spaces are normally aligned. The soft tissues are unremarkable. IMPRESSION: No acute bony abnormality. Reviewed, Interpreted and Dictated by Alex Brice III, MD Transcribed by Monse Rush Authenticated and [facility]
== END ==
PROVIDERS: PCP Family Medicine; Visit Provider Family Medicine
DX: M25.531 Pain in right wrist (principal)
CPT/HCPCS: 73110

== ENCOUNTER 2023-04-23 08:55 | Emergency (ER) | payer OTHER, SELFPAY ==
[2023-04-23 09:30] VITALS: BP 116/76; PULSE 74; RESP 18; TEMP 36.8; O2SAT 98; BMI 25.2
--- NOTE | 2023-04-23 09:39 | EXP.UTC ---
Discharge Plan Disposition Patient Disposition: Home, Self-Care Condition: Good Prescriptions Prescriptions: New azithromycin [Zithromax] 250 mg tablet 250 mg PO UD DOSE PK Qty: 6 0RF Rx Instructions: Take two (2) tablets today, then one (1) tablet days #2 thru #5 benzonatate [benzonatate] 100 mg capsule 100 mg PO TIDP PRN (Reason: Cough) Qty: 30 0RF methylprednisolone 4 mg Tablets,Dose Pack 4 mg PO DIRECTED Qty: 21 0RF guaifenesin [Mucinex] 600 mg tablet extended release 12hr 600 - 1,200 mg PO BIDP PRN (Reason: Congestion) Qty: 30 0RF No Action Lo Loestrin Fe 1 mg-10 mcg (24)/10 mcg (2) tablet 1 tab PO DAILY Qty: 28 10RF Xarelto 20 mg tablet See Rx Instructions .ROUTE .COMPLEX Qty: 90 2RF Dose Instruction: TAKE ONE TABLET BY MOUTH EVERY DAY with evening meal Rx Instructions: TAKE ONE TABLET BY MOUTH EVERY DAY with evening meal estradiol [Vagifem] 10 mcg tablet 10 mcg vaginal .Twice weekly 30 Days Qty: 8 11RF diltiazem HCl 120 mg capsule,extended release 24hr 120 mg PO DAILY Qty: 90 3RF sertraline 25 MG tablet 25 mg PO DAILY Referrals Follow up/Referrals: Shane Hall MD [Primary Care Provider] - See instructions Activity Restrictions/Add. Instructions Additional Instructions/Restrictions: Drink plenty of fluids. Take tylenol or ibuprofen for pain or fever. Take the medications as directed. Follow up with your regular doctor. GO TO THE ER FOR ANY WORSENING SYMPTOMS Clinical Impressions Clinical Impression: Sinusitis Instructions Patient Instructions: DI for Sinusitis, Sinusitis Discharge ED Provider: Junior Lawson [facility] [place] HPI General Stated complaint: sore throat congestion face pain Time Seen by Provider: 04/23/23 09:39 History of Present Illness Provider Complaint: She states that for the past 3 days she has had sinus congestion, facial pressure, scratchy throat, and a dry cough. She denies fever/chills/body aches. Related Data Home Medications Medication Instructions Recorded Confirmed sertraline 25 mg tablet 25 mg PO DAILY depression 04/29/20 04/23/23 Previous Rx's Medication Instructions Recorded rivaroxaban 20 mg tablet (Xarelto) See Rx Instructions .Route 06/22/23 .COMPLEX #90 tabs norethindrone 1 mg-ethinyl 1 tab PO DAILY #28 tabs 11/18/22 estradiol 10 mcg (24)-iron 10 mcg(2) tablet (Lo Loestrin Fe) estradiol 10 mcg vaginal tablet 10 mcg vaginal .Twice weekly 30 12/27/22 (Vagifem) days #8 tabs diltiazem HCl 120 mg 120 mg PO DAILY #90 caps 02/12/23 capsule,extended release 24 hr azithromycin 250 mg tablet 250 mg PO UD DOSE PK #6 tabs 04/23/23 (Zithromax) benzonatate 100 mg capsule 100 mg PO TIDP PRN Cough #30 caps 04/23/23 guaifenesin 600 mg tablet, 600 - 1,200 mg PO BIDP PRN 04/23/23 extended release 12 hr (Mucinex) Congestion #30 tabs methylprednisolone 4 mg tablets in 4 mg PO DIRECTED #21 tabs 04/23/23 a dose pack Allergies Allergy/AdvReac Type Severity Reaction Status Date / Time No Known Allergies Allergy Verified 04/23/23 09:50 [facility] Disclaimer: The information contained in this section may have been updated after the patient was seen, as this information can be updated by other users. Medical History (Updated 04/23/23 @ 10:05 by Junior Lawson APRN) Abnormal EKG Chest pain Deviated septum New onset atrial fibrillation Pericardial effusion Sinus bradycardia Surgical History History of endometrial ablation Family History Other Diabetes Social History Smoking Status: Never smoker alcohol intake: never substance use type: denies use current occupational status: employed Travel in the last 8 weeks: Inside the [place] ROS Obtained: Yes All systems reviewed & no additional co
[2023-04-23 10:25] VITALS: BP 116/76; PULSE 74; RESP 18; TEMP 36.8; O2SAT 98
== END 2023-04-23 10:25 | disposition home or self-care (01) ==
PROVIDERS: Emergency Provider Nurse Practitioner Family; PCP Family Medicine
DX: J01.90 Acute sinusitis, unspecified (principal); R09.81 Nasal congestion; R07.0 Pain in throat; R05.9 Cough, unspecified
CPT/HCPCS: 99212; 99214; G0463

== ENCOUNTER 2024-08-21 16:00 | Outpatient (CLI) | payer BC, SELFPAY ==
[2024-08-21 16:20] LABS: Basophils # 0.1 K/mm3 (0-0.2); Basophils % 0.7 % (0.1-2.0); Eosinophils # 0.1 K/mm3 (0.0-0.4); Eosinophils % 0.9 % (0.1-12.0); Hematocrit 41.4 % (37.0-47.0); Hemoglobin 14.5 g/dL (12.2-16.2); Lymphocytes # 3.7 K/mm3 (0.7-4.5); Lymphocytes % 39.7 % (10-50); Mean Corpuscular Hemoglobin 33.6 pg (27.0-31.2); Mean Corpuscular Volume 95.8 fl (81-99); Mean Platelet Volume 10.4 fl (7.4-10.4); Monocytes # 0.7 K/mm3 (0.1-1.0); Monocytes % 7.4 % (1.7-9.3); Neutrophils # 4.8 K/mm3 (1.8-7.8); Neutrophils % 51.3 % (37.0-80.0); Platelet Count 250 K/mm3 (142-424); Red Blood Count 4.32 M/mm3 (4.20-5.40); Red Cell Distribution Width 11.9 % (11.5-17.5); White Blood Count 9.4 K/mm3 (4.8-10.8)
[2024-08-21 17:00] LABS: Albumin Level 4.4 g/dl (3.5-5.0); Chloride 103 mmol/L (98-107); Sodium 137 mmol/L (136-145)
[2024-08-21 17:02] LABS: Bilirubin,Unconjugated 0.4 mg/dL (0.0-1.1); Blood Urea Nitrogen 18 mg/dl (7-17); Estimated Glomerular Filt Rate 58 ml/min (>60); GFR (African American) 71 ML/MIN (>60)
[2024-08-21 17:03] LABS: Alanine Aminotransferase 21 U/L (12-78); Alkaline Phosphatase 46 U/L (38-126); Aspartate Amino Transferase 28 U/L (14-36); Bilirubin,Direct 0.1 mg/dl (0.0-0.4); Bilirubin,Indirect 0.4 mg/dL (0.0-0.9); Bilirubin,Total 0.5 mg/dl (0.2-1.3); Calcium 9.2 mg/dl (8.4-10.2); Carbon Dioxide 28 mmol/L (22.0-30.0); Cholesterol 174 mg/dl (140-200); Glucose 91 mg/dl (74-100); Total Protein,Serum 6.6 g/dl (6.3-8.2); Triglycerides 102 mg/dl (30-150); VLDL Cholesterol 20 mg/dL (0-40)
[2024-08-21 17:04] LABS: Chol/HDL Ratio 1.9 (1-3.5); HDL Cholesterol 94 mg/dl (40-60)
[2024-08-21 17:14] LABS: Direct LDL Cholesterol 62.34 mg/dL (100-129)
[2024-08-21 17:19] LABS: Free T4 (Free Thyroxine) 0.81 ng/dl (0.78-2.19)
[2024-08-21 17:34] LABS: Thyroid Stimulating Hormone 1.54 uIU/mL (0.465-4.68)
== END 2024-08-21 23:59 | disposition home or self-care (01) ==
LOC: LAB 16:02
PROVIDERS: PCP Family Medicine; Visit Provider Internal Medicine
DX: I48.0 Paroxysmal atrial fibrillation (principal); R00.2 Palpitations; R94.31 Abnormal electrocardiogram [ECG] [EKG]; Z00.00 Encounter for general adult medical examination without abnormal findings; R07.9 Chest pain, unspecified
CPT/HCPCS: 36415; 80048; 80061; 80076; 84439; 84443; 85025

== ENCOUNTER 2024-12-12 01:04 | Emergency (ER) | payer BC, SELFPAY ==
[2024-12-12] VITALS (11 sets, daily range): BP systolic 112–151; BP diastolic 72–89; PULSE 61–122; RESP 14–21; TEMP 36.8; O2SAT 94–97; BMI 22.8
--- NOTE | 2024-12-12 01:08 | HMH.EDGENADL ---
Discharge Plan Disposition Patient Disposition: Home, Self-Care Prescriptions Prescriptions: No Action Xarelto 20 mg tablet See Rx Instructions .ROUTE .COMPLEX Qty: 90 3RF Dose Instruction: TAKE 1 TABLET BY MOUTH DAILY Rx Instructions: TAKE 1 TABLET BY MOUTH DAILY diltiazem HCl 120 mg capsule,extended release 24hr See Rx Instructions .ROUTE .COMPLEX Qty: 90 3RF Dose Instruction: TAKE 1 CAPSULE BY MOUTH DAILY Rx Instructions: TAKE 1 CAPSULE BY MOUTH DAILY Lo Loestrin Fe 1 mg-10 mcg (24)/10 mcg (2) tablet See Rx Instructions .ROUTE .COMPLEX Qty: 84 3RF Dose Instruction: TAKE 1 TABLET BY MOUTH DAILY Rx Instructions: TAKE 1 TABLET BY MOUTH DAILY sertraline 25 MG tablet 25 mg PO DAILY Referrals Follow up/Referrals: Shane Hall MD [Primary Care Provider, Medical] - See instructions Activity Restrictions/Add. Instructions Additional Instructions/Restrictions: Please follow-up with your head of sales and marketing. Please return to the emergency department if you develop any new or worsening symptoms or become concerned for your health. Clinical Impressions Clinical Impression: PAF (paroxysmal atrial fibrillation), Atrial fibrillation with rapid ventricular response Print Language Print Language: Belgian Discharge ED Provider: Romario Sabillon General Adult HPI General Chief complaint: Arrhythmia/Palpitations Stated complaint: irregular heartbeat Time Seen by Provider: 12/12/24 01:07 History of Present Illness HPI narrative: 49-year-old female with history of accessible A-fib, normally in sinus rhythm, presents for irregular heartbeat. She reports that started about 11 PM. She is on a blood thinner and diltiazem at baseline. She denies any recent change in medications, denies any recent fever or infection. Related Data Home Medications ?Medication ?Instructions ?Recorded ?Confirmed sertraline 25 mg tablet 25 mg PO DAILY depression 04/29/20 08/21/24 Previous Rx's ?Medication ?Instructions ?Recorded diltiazem HCl 120 mg See Rx Instructions .Route 08/21/24 capsule,extended release 24 hr .COMPLEX #90 caps rivaroxaban 20 mg tablet (Xarelto) See Rx Instructions .Route 08/21/24 .COMPLEX #90 tabs norethindrone 1 mg-ethinyl See Rx Instructions .Route 10/24/24 estradiol 10 mcg (24)-iron 10 .COMPLEX #84 tabs mcg(2) tablet (Lo Loestrin Fe) Allergies Allergy/AdvReac Type Severity Reaction Status Date / Time No Known Allergies Allergy Verified 12/12/24 01:13 [facility] Disclaimer: The information contained in this section may have been updated after the patient was seen, as this information can be updated by other users. Medical History Deviated septum Pericardial effusion Sinus bradycardia Abnormal EKG Chest pain New onset atrial fibrillation Surgical History History of endometrial ablation Family History Other Diabetes Social History Smoking Status: Never smoker alcohol intake: never substance use type: denies use current occupational status: employed Travel in the last 8 weeks?: Inside the [place] Have you lived/traveled outside US in past 30 days?: No Contact w/someone who lives/traveled outside US past 30 days?: No Exposure to someone with infectious disease in past 14 days?: No Do you have a fever (greater than 100.4 F or 38 C)?: No Have you tested positive for COVID-19?: No Exposed to someone with COVID-19 in past 14 days?: No Do you have a sore throat?: No Do you have a cough?: No Do you have any weakness?: No Do you have any diarrhea?: No Are you experiencing any unusual bleeding?: No Do you have any muscle aches/pain?: No Do you have any abdominal pain?: No Are you experiencing loss of taste or smell?: No Other Medical History Have you received the Flu Vaccine for this season: Yes Have you received the Pneumonia Vaccine: No ROS Obtained: Yes All systems reviewed & no additional complaints except as documented Physical Exam General General appearance: alert and in no apparent distress Head Head exam: atraumatic and normocephalic Eye Eye exam: Present normal appearance, PERRL and EOMI ENT ENT exam: Present normal oropharynx and normal external ear exam Neck Neck exam: Present normal inspection and full ROM Chest Chest inspection: Present normal inspection and symmetric chest wall rise; Absent tenderness Respiratory Respiratory exam: Present normal lung sounds bilaterally; Absent respiratory distress Cardiovascular Cardiovascular exam: Present tachycardia and irregular rhythm Abdominal Exam Abdominal exam: Present soft; Absent distention, tenderness or guarding Extremities Exam Extremities exam: Present normal inspection; Absent edema or joint swelling Back Exam Back exam: Present normal inspection; Absent tenderness Neurological Exam Neurological exam: Present alert and oriented X3; Absent motor sensory deficit Psychiatric Psychiatric exam: Present normal affect and normal mood Skin Skin exam: Present warm, dry and normal color Lymphatic Lymphatic Findings: no adenopathy Medical Decision Making Medical Records Medical records reviewed: Yes I reviewed the patient's medical records. Screening: Per USPSTF and CDC recommendations, given the prevalence of disease in our region, it is our hospital?s policy to screen for HIV and viral Hepatitis for all patients aged 18 and over and those with ongoing risk factors. Basil Inquiry Pt receiving controlled substance: No Basil was queried for this patient: No Vital Signs: 12/12/24 01:14 12/12/24 01:24 12/12/24 01:30 Temperature 98.2 F Temperature Source Oral Pulse Rate 109 H 67 Pulse Rate [Right] 122 H Respiratory Rate 14 16 16 Blood Pressure Blood Pressure [Right Arm] 151/89 H Blood Pressure Mean Blood Pressure Mean [Right Arm] 109 Blood Pressure Source Blood Pressure Source [Right Arm] Automatic Cuff Blood Pressure Position Blood Pressure Position [Right Arm] Sitting 02 Sat by Pulse Oximetry 94 L 95 96 Oxygen Delivery Method Room Air 12/12/24 01:46 12/12/24 01:46 12/12/24 02:00 Temperature Temperature Source Pulse Rate 62 66 Pulse Rate [Right] Respiratory Rate 15 21 Blood Pressure 116/82 Blood Pressure [Right Arm] Blood Pressure Mean 93 Blood Pressure Mean [Right Arm] Blood Pressure Source Blood Pressure Source [Right Arm] Blood Pressure Position Blood Pressure Position [Right Arm] 02 Sat by Pulse Oximetry 97 96 Oxygen Delivery Method 12/12/24 02:01 12/12/24 02:01 12/12/24 02:15 Temperature Temperature Source Pulse Rate 61 74 Pulse Rate [Right] Respiratory Rate 20 14 Blood Pressure 122/79 Blood Pressure [Right Arm] Blood Pressure Mean 88 Blood Pressure Mean [Right Arm] Blood Pressure Source Blood Pressure Source [Right Arm] Blood Pressure Position Blood Pressure Position [Right Arm] 02 Sat by Pulse Oximetry 95 96 Oxygen Delivery Method 12/12/24 02:30 12/12/24 02:30 12/12/24 02:39 Temperature Temperature Source Pulse Rate 76 Pulse Rate [Right] Respiratory Rate 14 Blood Pressure 119/82 112/74 Blood Pressure [Right Arm] Blood Pressure Mean 87 83 Blood Pressure Mean [Right Arm] Blood Pressure Source Blood Pressure Source [Right Arm] Blood Pressure Position Blood Pressure Position [Right Arm] 02 Sat by Pulse Oximetry 95 Oxygen Delivery Method 12/12/24 02:39 12/12/24 03:00 12/12/24 03:00 Temperature Temperature Source Pulse Rate 61 62 Pulse Rate [Right] Respiratory Rate 21 15 Blood Pressure 118/72 Blood Pressure [Right Arm] Blood Pressure Mean 80 Blood Pressure Mean [Right Arm] Blood Pressure Source Blood Pressure Source [Right Arm] Blood Pressure Position Blood Pressure Position [Right Arm] 02 Sat by Pulse Oximetry 97 97 Oxygen Delivery Method 12/12/24 03:15 Temperature 98.2 F Temperature Source Oral Pulse Rate 62 Pulse Rate [Right] Respiratory Rate 16 Blood Pressure 118/72 Blood Pressure [Right Arm] Blood Pressure Mean Blood Pressure Mean [Right Arm] Blood Pressure Source Automatic Cuff Blood Pressure Source [Right Arm] Blood Pressure Position Sitting Blood Pressure Position [Right Arm] 02 Sat by Pulse Oximetry Oxygen Delivery Method Room Air Lab Data Lab results reviewed: Yes I reviewed the patient's lab results. Lab Results 12/12/24 01:14: WBC 8.9, RBC 4.64, Hgb 15.3, Hct 43.9, MCV 94.6, MCH 33.0 H, MCHC 34.9, RDW 12.0, Plt Count 293, MPV 10.4, Neut % (Auto) 33.9 L, Lymph % (Auto) 52.5 H, Owen % (Auto) 9.2, Eos % (Auto) 3.4, Baso % (Auto) 0.9, Neut # (Auto) 3.0, Lymph # (Auto) 4.7 H, Owen # (Auto) 0.8, Eos # (Auto) 0.3, Baso # (Auto) 0.1, Sodium 137, Potassium 4.0, Chloride 105, Carbon Dioxide 25, Anion Gap 11.0, BUN 11, Creatinine 0.60, Estimated Creat Clear 123, Estimated GFR 105, Est GFR ( Amer) 128, Glucose 101 H, Calcium 9.6, Phosphorus 3.1, Magnesium 2.1, Total Bilirubin 0.9, AST 33, ALT 19, Alkaline Phosphatase 48, Troponin I < 0.01, NT-Pro-B Natriuret Pep 59.0, Total Protein 7.6, Albumin 4.6, Globulin 3.0, Albumin/Globulin Ratio 1.5, TSH 3.69, Thyroxine (T4) 11.1 H, HCV Ab CLAUDINE w/Rflx PCR Qn Negative, HIV Ag/Ab Combo Qual Negative 12/12/24 01:14 12/12/24 01:14 Orders (Tests/Meds): ED MEDICATIONS Discontinued Medications Generic Name Dose Route Start Last Admin Trade Name Freq PRN Reason Stop Dose Admin Diltiazem HCl 20 mg 12/12/24 01:14 12/12/24 01:32 Diltiazem 25mg/5ml Vial IV 12/12/24 01:15 20 mg ONCE ONE Administration Diltiazem HCl 120 mg 12/12/24 01:30 12/12/24 01:44 Diltiazem Er 120mg Capsule PO 12/12/24 01:31 Not Given ONCE ONE Diltiazem HCl 10 mg 12/12/24 02:30 12/12/24 02:29 Diltiazem 25mg/5ml Vial IV 12/12/24 02:31 10 mg ONCE ONE Administration Lactated Ringer's 1,000 mls @ 999 mls/hr 12/12/24 02:30 12/12/24 02:29 Lactated Ringer's 1000 Ml Bag IV 12/12/24 03:30 999 mls/hr .Q1H1M MAHI Administration ORDERS Category Date Time Status BNP [NT Pro Brain Natriuretic Pep.] Stat Lab 12/12/24 01:14 Completed CBC w/Auto Diff [Complete Blood Count Auto Diff] Stat Lab 12/12/24 01:14 Completed CMP [Comprehensive Metabolic Panel] Stat Lab 12/12/24 01:14 Completed HIV Combo Stat Lab 12/12/24 01:14 Completed Hepatitis C Ab Qual. W/ RFX Stat Lab 12/12/24 01:14 Completed Magnesium Stat Lab 12/12/24 01:14 Completed Phosphorous Stat Lab 12/12/24 01:14 Completed T4 (Thyroxine) Stat Lab 12/12/24 01:14 Completed TSH [Thyroid Stimulating Hormone] Stat Lab 12/12/24 01:14 Completed Troponin I Q3H Lab 12/12/24 01:14 Completed ECG Data Tracing #1: I reviewed this ECG and interpreted as documented below: Atrial fibrillation with rapid ventricular rate, rate of 129, moderate ST depressions noted ECG initial impression date: 12/12/24 ECG initial impression time: 01:10 HEART Score History (anamnesis): Slightly suspicious ECG: Non-specific disturbance Age: 45-65 years Risk factors: No known risk factors Troponin: </= normal limit HEART Score: 2 Medical Decision Narrative: 49-year-old female with history of paroxysmal A-fib, on Xarelto and diltiazem, presents for recurrent A-fib which she believes started at 11 PM. History was obtained via interactive discussion with patient, family, chart review. On arrival, patient is [afebrile, hemodynamically stable, satting appropriately, alert, oriented x4, GCS 15], moving all extremities spontaneously. Full physical exam performed and significant for no significant physical exam abnormalities. EKG consistent with A-fib RVR with some rate dependent ST changes. Differential includes but is not limited to electrolyte derangement, ACS, arrhythmia,. Patient took her home oral 120 mg diltiazem shortly prior to arrival. In the ER she was given 20 mg of IV diltiazem with resolution of her RVR, she did not cardiovert however. Labs were independently interpreted by me and showed no significant electrolyte derangement. Troponin negative. I had interactive discussion with patient regarding her presentation. Given she is now at a normal rate and is appropriately anticoagulated, she does not necessarily have to be placed back in sinus rhythm. She reports that she can feel when she is not in rhythm and it is bothersome to her and she would like to try another round of diltiazem, but does not want to go so far as to be cardioverted in the ER tonight. She also does not want to be admitted. Patient was given an additional dose of diltiazem as well as a fluid bolus without conversion to sinus rhythm. Her ST changes resolved with resolution of RVR. After further discussion with patient, she would like to go home and follow-up with her head of sales and marketing. Given this, she was discharged in stable condition with return precautions. Procedures Risk/Benefits of Procedure(s) Were Explained: Yes Critical Care Critical Care Time Critical Care Time: Yes Attestation: On 12/12/24, the high probability of a clinically significant, sudden or life threatening deterioration of the following system(s) cardiac required my full and direct attention, intervention and personal management. The time I documented below is in addition to time spent performing reported procedures but includes the following listed in this critical care notation. Total Time Total Critical Care Time: 45
--- NOTE | 2024-12-12 01:10 | ECG_ITS ---
APPROVED REPORT Exam: Resting ECG HR:129 bpm ECG Measurements Heart Rate 129 AXES QRSd 97 QRS 78 QT 292 T 74 QTc 368 Conclusion ATRIAL FIBRILLATION WITH RAPID VENTRICULAR RESPONSE INDETERMINATE AXIS MODERATE ST DEPRESSION [0.05+ mV ST DEPRESSION] ABNORMAL ECG UNCONFIRMED REPORT Electronically signed by : ABELARDO MERLOS, 12/13/2024 01:20:53
--- OUTSIDE RECORDS SUMMARY | 2024-12-12 01:17 | XMS_ITS | Clinical Summary ---
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 Name Role Phone Unavailable Primary Care Provider Unavailabl e Social History Tobacco Use Types Packs/Day Years Used Date Smoking Tobacco: Never Assessed Comments Unknown Sex and Gender Information Value Date Recorded Sex Assigned at Not on file Legal Sex Female 7:28 PM EDT Gender Identity Not on file Sexual Orientation Not on file Plan of Treatment Health Maintenance Due Date Last Done Comments [facility]-Depression Screening 1973 [facility]-/Child/Adol SDOH Screenings 1973 [facility]- SDOH Screenings 1991 [facility]-Adult SDOH Screenings 1991 [facility]-DTaP,Tdap,and Td Vaccine s (1 - Tdap) 1992 [facility]-Hepatitis B Vaccines (1 of 3 - 19+ 3-dose series) 1992 [facility]-Pap Smear 1994 [facility]-Cervical Cancer Screening 2003 [facility]-HPV/Cotest 2003 CT Colonography 2018 Colonoscopy 2018 FIT-DNA 2018 FIT 2018 FOBT 2018 Sigmoidoscopy 2018 [facility]-Colorectal Cancer Screening 2018 [facility]-Pneumococcal Vaccine: 50 + Years (1 of 1 - PCV) 2023 [facility]-Zoster Vaccines (1 of 2) 2023 [id number] Vaccine ( - season) 2024 03/25/2021, 06/21/2020, 05/22/2020 [facility]-Influenza Vaccine (#1) 2025 HPV Vaccines Aged Out No longer eligi ble based on patient's age to complete this topic [facility]-HIB Vaccines Aged Out No longer e ligible based on patient's age to complete this topic [facility]-Hepatitis A Vaccines Aged Out No longer eligible based on patient's age to complete this topic [facility]-IPV Vaccines Aged Out No longer e ligible based on patient's age to complete this topic [facility]-Rotavirus Vaccines Aged Out No lo nger eligible based on patient's age to complete this topic
--- OUTSIDE RECORDS SUMMARY | 2024-12-12 01:17 | XMS_ITS | Clinical Summary ---
Author Organization [facility] Address [address] [place] [address] Care Team Providers Care Network Project Manager Name Role Phone Shane Hall MD Primary Care Provider + [phone] Family History Medical History Relation Name Comments Breast cancer Neg Hx Ovarian cancer Neg Hx Social History Tobacco Use Types Packs/Day Years Used Date Smoking Tobacco: Never Assessed Comments No Sex and Gender Information Value Date Recorded Sex Assigned at Not on file Legal Sex Female 1:47 PM EDT Gender Identity Not on file Sexual Orientation Not on file Plan of Treatment Health Maintenance Due Date Last Done Comments ANNUAL PHYSICAL 1973 Annual Gynecologic Pelvic an d Breast Exam 1973 HEPATITIS C SCREENING 1973 TDAP/TD VACCINES (1 - Tdap) 1992 COLOGUARD 2018 COLON CANCER SCREENING 5 YEA R SIGMOIDOSCOPY 2018 COLONOSCOPY 2018 [address] CANCER SCREENING 2018 CT COLONOGRAPHY 2018 FECAL OCCULT BLOOD TEST 2018 FIT Testing (1 year) 2018 Pneumococcal Vaccine 50+ (1 of 1 - PCV) 2023 ZOSTER VACCINE (1 of 2) 2023 COVID-19 Vaccine ( - 2023-2 5 season) 2024 03/25/2021, 06/21/2020, 05/22/2020 INFLUENZA VACCINE 02/21/2025 MAMMOGRAM 07/07/2026 07/07/2024, 02/21, 02/18/2022, Additional history exists Procedures Procedure Name Priority Date/Time Associated Diagnosis Comments MAMMO SCREENING DIGITAL TOMOSYNTHESIS BILATERAL W CAD Routine 07/07/2024 1:14 PM EST Visit for screening mammogram from Last 3 Months or Most Recently Relevant to Health Maintenance Results * Mammo Screening Digital Tomosynthesis Bilateral With CAD (07/07/2024 1:14 PM EST) Anatomical Region Laterality Modality Breast N/A Mammography 07/11/2024 1:44 PM EST Impressions 07/11/2024 1:47 PM EST No findings suspicious for malignancy. ACR BI-RADS CATEGORY: 1, NEGATIVE RECOMMENDATION: Yearly mammogram, yearly clinical breast exam, and encourage self breast awareness. CAD was used. The standard false negative rate of mammography is between 10% and 25%. Complex patterns or increased breast density will markedly elevate the false negative rate of mammography. A letter, in lay terminology, with the results of this exam will be mailed to the patient. If there is a palpable area of concern, biopsy should be considered regardless of imaging findings. 07/11/2024 1:47 PM by Sarah Benton MD on Narrative 07/11/2024 1:47 PM EST ROUTINE DIGITAL SCREENING MAMMOGRAM WITH TOMOSYNTHESIS HISTORY: Routine screening. IMAGE COMPARISON: Extending to 2019. TECHNIQUE: Low dose full field digital breast tomosynthesis imaging was performed with 2D and 3D acquisitions consisting of bilateral CC and MLO views. FINDINGS: The breasts are heterogeneously dense. The fibroglandular pattern appears stable. There is no mass, worrisome microcalcifications, or architectural distortion to suggest development of malignancy. us Jaime Andrade MD IMG MAMMOGRAPHY ORDERABLES Fi nal Result from Last 3 Months or Most Recently Relevant to Health Maintenance Insurance [address], [place] [id number] [facility] PPO Care Teams Network Project Manager Relationship Specialty Start Date End Date Shane Hall MD [address] [place] [facility] [address] [facility] [address] [place] [address] PCP - General Family Medicine 07/20/18
[2024-12-12 01:21] LABS: Hematocrit 43.9 % (37.0-47.0); Hemoglobin 15.3 g/dL (12.2-16.2); Immature Granulocytes % 0.1 %; Mean Corpuscular HGB Conc 34.9 g/dL (31.8-35.4); Mean Corpuscular Hemoglobin 33.0 pg (27.0-31.2); Mean Corpuscular Volume 94.6 fl (81-99); Nucleated Red Blood Cells % 0 %; Platelet Count 293 K/mm3 (142-424); Red Blood Count 4.64 M/mm3 (4.20-5.40); Red Cell Distribution Width-SD 41.9 fL; White Blood Count 8.9 K/mm3 (4.8-10.8)
[2024-12-12 01:40] LABS: Albumin Level 4.6 g/dl (3.5-5.0); Chloride 105 mmol/L (98-107)
[2024-12-12 01:41] LABS: Potassium 4.0 mmoL/L (3.5-5.1); Sodium 137 mmol/L (136-145)
[2024-12-12 01:43] LABS: Alanine Aminotransferase 19 U/L (12-78); Albumin/Globulin Ratio 1.5 (1.1-1.8); Alkaline Phosphatase 48 U/L (38-126); Anion Gap 11.0 mEq/L (5-15); Aspartate Amino Transferase 33 U/L (14-36); Bilirubin,Total 0.9 mg/dl (0.2-1.3); Blood Urea Nitrogen 11 mg/dl (7-17); Carbon Dioxide 25 mmol/L (22.0-30.0); Creatinine Clearance Estimated 123 mL/min (50-200); Creatinine,Serum 0.60 mg/dl (0.52-1.04); Estimated Glomerular Filt Rate 105 ml/min (>60); GFR (African American) 128 ML/MIN (>60); Globulin 3.0 g/dL (1.3-3.2); Total Protein,Serum 7.6 g/dl (6.3-8.2)
[2024-12-12 01:44] LABS: Calcium 9.6 mg/dl (8.4-10.2); Glucose 101 mg/dl (74-100); Magnesium 2.1 mg/dl (1.6-2.3); Phosphorous 3.1 mg/dl (2.5-4.5)
[2024-12-12 01:54] LABS: NT Pro Brain Natriuretic Pep. 59.0 pg/mL (0-125)
[2024-12-12 02:01] LABS: T4 (Thyroxine) 11.1 ug/dl (5.53-11.0); Troponin I < 0.01 ng/ml (0.00-0.034)
[2024-12-12 02:15] LABS: Thyroid Stimulating Hormone 3.69 uIU/mL (0.465-4.68)
[2024-12-12] MEDS: LACTATED RINGERS 1000ML 1,000 ML 999 ML IV (02:29)
[2024-12-12 02:34] LABS: Hepatitis C Ab Qual. W/ RFX NEGATIVE (Negative)
== END 2024-12-12 03:23 | disposition home or self-care (01) ==
PROVIDERS: Emergency Provider Emergency Medicine; PCP Family Medicine
DX: I48.91 Unspecified atrial fibrillation (principal); I48.0 Paroxysmal atrial fibrillation
CPT/HCPCS: 80053; 83735; 83880; 84100; 84436; 84443; 84484; 85025; 86803; 87389; 93005; 96361; 96374; 96376; 99291; J7120

== ENCOUNTER 2024-12-12 07:17 | Observation (INO) | payer BC, SELFPAY ==
[2024-12-12] VITALS (80 sets, daily range): BP systolic 90–170; BP diastolic 52–109; PULSE 53–156; RESP 10–21; TEMP 36.6–37.2; O2SAT 94–100; BMI 22.8
--- NOTE | 2024-12-12 07:15 | ECG_ITS ---
APPROVED REPORT Exam: Resting ECG HR:125 bpm ECG Measurements Heart Rate 125 AXES QRSd 98 QRS 97 QT 294 T 61 QTc 368 Conclusion ATRIAL FIBRILLATION WITH RAPID VENTRICULAR RESPONSE BORDERLINE RIGHT AXIS DEVIATION [QRS AXIS > 90] MINIMAL ST DEPRESSION [0.025+ mV ST DEPRESSION] ABNORMAL RHYTHM ECG UNCONFIRMED REPORT Atrial fibrillation with rapid ventricular response. No ST elevation or depression Electronically signed by : RONY STATON, 12/12/2024 17:07:06
--- NOTE | 2024-12-12 07:21 | ED_ITS ---
Discharge Plan Disposition Patient Disposition: Admitted Prescriptions Prescriptions: No Action Xarelto 20 mg tablet See Rx Instructions .ROUTE .COMPLEX Qty: 90 3RF Dose Instruction: TAKE 1 TABLET BY MOUTH DAILY Rx Instructions: TAKE 1 TABLET BY MOUTH DAILY diltiazem HCl 120 mg capsule,extended release 24hr See Rx Instructions .ROUTE .COMPLEX Qty: 90 3RF Dose Instruction: TAKE 1 CAPSULE BY MOUTH DAILY Rx Instructions: TAKE 1 CAPSULE BY MOUTH DAILY Lo Loestrin Fe 1 mg-10 mcg (24)/10 mcg (2) tablet See Rx Instructions .ROUTE .COMPLEX Qty: 84 3RF Dose Instruction: TAKE 1 TABLET BY MOUTH DAILY Rx Instructions: TAKE 1 TABLET BY MOUTH DAILY sertraline 25 MG tablet 25 mg PO DAILY Clinical Impressions Clinical Impression: Atrial fibrillation with rapid ventricular response Print Language Print Language: Austrian Discharge ED Provider: Kane Mcclellan Adult HPI General Chief complaint: Chest Pain Stated complaint: Chest Pain Time Seen by Provider: 12/12/24 07:19 Mode of Arrival: Ambulatory History of Present Illness HPI narrative: Monse Washington is a 49F with a history of paroxysmal A-fib on Xarelto, diltiazem who presents to the emergency department for complaints of heart palpitations and heavy beating in her chest. Patient states that last night at 11 PM, she felt an abnormal beating in her chest and came to the emergency department and was found to be in A-fib with RVR. She states that she was given an IV dose of diltiazem, which slowed her heart rate. They considered cardioversion, however she wanted to go home and rest to see if it got better. She notes that she has follow-up with Dr. Negrete this morning at 9 AM. She states that at home, she feels like her heart rate is fast again and feels a heavy beating that is irregular in her chest. She has some intermittent shortness of breath with it. Related Data Home Medications ?Medication ?Instructions ?Recorded ?Confirmed sertraline 25 mg tablet 25 mg PO DAILY depression 08/21/24 Previous Rx's ?Medication ?Instructions ?Recorded diltiazem HCl 120 mg See Rx Instructions .Route 0 08/21/24 capsule,extended release 24 hr .COMPLEX #90 caps rivaroxaban 20 mg tablet (Xarelto) See Rx Instructions .Route 08/21/24 .COMPLEX #90 tabs norethindrone 1 mg-ethinyl See Rx Instructions .Route 10/24/24 estradiol 10 mcg (24)-iron 10 .COMPLEX #84 tabs mcg(2) tablet (Lo Loestrin Fe) Allergies Allergy/AdvReac Type Severity Reaction Status Date / Time No Known Allergies Allergy Verified 12/12/24 01:13 [facility] Disclaimer: The information contained in this section may have been updated after the patient was seen, as this information can be updated by other users. Medical History Deviated septum Pericardial effusion Sinus bradycardia Abnormal EKG Chest pain New onset atrial fibrillation Surgical History History of endometrial ablation Family History Other Diabetes Social History Smoking Status: Never smoker alcohol intake: never substance use type: denies use current occupational status: employed Travel in the last 8 weeks?: Inside the [place] Have you lived/traveled outside US in past 30 days?: No Contact w/someone who lives/traveled outside US past 30 days?: No Exposure to someone with infectious disease in past 14 days?: No Do you have a fever (greater than 100.4 F or 38 C)?: No Have you tested positive for COVID-19?: No Exposed to someone with COVID-19 in past 14 days?: No Do you have a sore throat?: No Do you have a cough?: No Do you have any weakness?: No Do you have any diarrhea?: No Are you experiencing any unusual bleeding?: No Do you have any muscle aches/pain?: No Do you have any abdominal pain?: No Are you experiencing loss of taste or smell?: No Other Medical History Have you received the Flu Vaccine for this season: Yes Have you received the Pneumonia Vaccine: No ROS Obtained: Yes Systems reviewed as appropriate & no additional complaints except as documented Physical Exam General General appearance: alert and in no apparent distress Head Head exam: atraumatic Eye Eye exam: Present normal appearance ENT ENT exam: Present normal external ear exam Neck Neck exam: Present full ROM Chest Chest inspection: Present symmetric chest wall rise Respiratory Respiratory exam: Present normal lung sounds bilaterally; Absent respiratory distress, wheezes or stridor Cardiovascular Cardiovascular exam: Present tachycardia and irregular rhythm Abdominal Exam Abdominal exam: Present soft; Absent tenderness or guarding Extremities Exam Extremities exam: Present normal inspection Back Exam Back exam: Present normal inspection Neurological Exam Neurological exam: Present alert and oriented X3 Psychiatric Psychiatric exam: Present normal affect Skin Skin exam: Present warm and dry Medical Decision Making Medical Records Screening: Per USPSTF and CDC recommendations, given the prevalence of disease in our region, it is our hospital?s policy to screen for HIV and viral Hepatitis for all patients aged 18 and over and those with ongoing risk factors. Basil Inquiry Pt receiving controlled substance: No Vital Signs: 12/12/24 07:18 12/12/24 07:29 12/12/24 08:30 Temperature 98.4 F Temperature Source Oral Pulse Rate Pulse Rate [Right] 125 H 137 H Respiratory Rate 20 16 18 Blood Pressure 137/90 Blood Pressure [Right Arm] 155/109 H 141/97 H Blood Pressure Mean [Right Arm] 124 111 02 Sat by Pulse Oximetry 96 99 Oxygen Delivery Method Room Air Nasal Cannula Oxygen Flow Rate (LPM) 2 12/12/24 08:30 12/12/24 08:34 12/12/24 08:38 Temperature Temperature Source Pulse Rate 134 H 154 H 129 H Pulse Rate [Right] Respiratory Rate Blood Pressure 139/82 141/97 H 170/86 H Blood Pressure [Right Arm] Blood Pressure Mean [Right Arm] 02 Sat by Pulse Oximetry 99 99 100 Oxygen Delivery Method Nasal Cannula Nasal Cannula Nasal Cannula Oxygen Flow Rate (LPM) 2 2 2 12/12/24 08:46 12/12/24 08:52 Temperature Temperature Source Pulse Rate 156 H 122 H Pulse Rate [Right] Respiratory Rate 16 16 Blood Pressure 169/91 H 137/85 Blood Pressure [Right Arm] Blood Pressure Mean [Right Arm] 02 Sat by Pulse Oximetry 95 97 Oxygen Delivery Method Nasal Cannula Nasal Cannula Oxygen Flow Rate (LPM) 2 2 Lab Data Lab Results 12/12/24 07:20: WBC 7.8, RBC 4.81, Hgb 15.9, Hct 45.3, MCV 94.2, MCH 33.1 H, MCHC 35.1, RDW 11.9, Plt Count 288, MPV 10.3, Neut % (Auto) 42.1, Lymph % (Auto) 45.5, [place] % (Auto) 9.0, Eos % (Auto) 2.1, Baso % (Auto) 1.0, Neut # (Auto) 3.3, Lymph # (Auto) 3.5, [place] # (Auto) 0.7, Eos # (Auto) 0.2, Baso # (Auto) 0.1, Sodium 140, Potassium 4.0, Chloride 107, Carbon Dioxide 27, Anion Gap 10.0, BUN 9, Creatinine 0.70, Estimated Creat Clear 106, Estimated GFR 88, Est GFR ( Amer) 107, Glucose 102 H, Calcium 9.9, Magnesium 2.0, Total Bilirubin 1.4 H, AST 33, ALT 19, Alkaline Phosphatase 53, Troponin I < 0.01, Total Protein 7.7, Albumin 4.7, Globulin 3.0, Albumin/Globulin Ratio 1.6 12/12/24 07:20 12/12/24 07:20 Orders (Tests/Meds): ED MEDICATIONS Discontinued Medications Generic Name Dose Route Start Last Admin Trade Name Melissa PRN Reason Stop Dose Admin Diltiazem HCl 20 mg 12/12/24 07:19 12/12/24 07:27 Diltiazem 25mg/5ml Vial IV 12/12/24 07:20 20 mg ONCE ONE Administration Diltiazem HCl 20 mg 12/12/24 08:52 12/12/24 09:00 Diltiazem 25mg/5ml Vial IV 12/12/24 08:53 20 mg ONCE ONE Administration Fentanyl Citrate 50 mcg 12/12/24 09:00 12/12/24 08:32 Fentanyl 100mcg/2ml Vial IV 12/12/24 09:01 50 mcg ONCE ONE Administration Ketamine HCl 20 mg 12/12/24 08:16 12/12/24 08:32 Ketamine 50mg/1ml Syringe IV 12/12/24 08:17 20 mg ONCE ONE Administration Ondansetron HCl 4 mg 12/12/24 09:05 12/12/24 09:07 Ondansetron 4mg/2ml Vial IV 12/12/24 09:06 4 mg ONCE ONE Administration Promethazine HCl 25 mg 12/12/24 10:09 12/12/24 10:12 Promethazine Hcl 25mg/Ml 1ml Vial IV 07/22/25 10:10 25 mg ONCE ONE Administration Sodium Chloride 25 ml 12/12/24 10:09 12/12/24 10:13 Sodium Chloride 0.9% 25ml Bag IV 12/12/24 10:10 25 ml ONCE ONE Administration ORDERS Category Date Time Status CBC w/Auto Diff [Complete Blood Count Auto Diff] Stat Lab 12/12/24 07:20 Completed CMP [Comprehensive Metabolic Panel] Stat Lab 12/12/24 07:20 Completed Magnesium Stat Lab 12/12/24 07:20 Completed Troponin I Stat Lab 12/12/24 07:20 Completed ECG Data Tracing #1: I reviewed this ECG and interpreted as documented below: A-fib with RVR with ventricular rate of 125 bpm. There appeared to be some irregular P waves, some of which may represent more of an atrial flutter pattern. No ST elevation or depression. No T wave inversions. Medical Decision Narrative: Monse Washington is a 49F with a history of paroxysmal A-fib on Xarelto, diltiazem who presents to the emergency department for complaints of heart palpitations and heavy beating in her chest. Patient states that last night at 11 PM, she felt an abnormal beating in her chest and came to the emergency department and was found to be in A-fib with RVR. She states that she was given an IV dose of diltiazem, which slowed her heart rate. They considered cardioversion, however she wanted to go home and rest to see if it got better. She notes that she has follow-up with Dr. Negrete this morning at 9 AM. She states that at home, she feels like her heart rate is fast again and feels a heavy beating that is irregular in her chest. She has some intermittent shortness of breath with it. On arrival, patient's blood pressure mildly hypertensive at 155/109, tachycardic with a heart rate of 125 bpm. 96% SpO2 on room air. Afebrile. Physical exam, stated above, revealed anxious appearing female in no respiratory distress. Cardiopulmonary exam shows an irregularly irregular and tachycardic rhythm with no murmurs or rubs. No wheezing, rales or rhonchi. Abdomen is soft, nontender nondistended. Differential diagnosis includes, but is not limited to: Cardiac arrhythmia, electrolyte derangement, ACS, among others. The most morbid conditions were considered and workup was based on these. Workup in the emergency department includes: CBC, CMP, magnesium level, troponin, EKG. patient's lab work from overnight showed unremarkable CBC, CMP with normal electrolytes, initial troponin of less than 0.01, BNP normal at 59. TSH normal at 3.69, thyroxine level very mildly elevated at 11.1. Initial troponin less than 0.01 (consistent with troponin obtained at around 1 AM last night). Mildly elevated bilirubin of 1.4 but CMP otherwise unremarkable nonactionable. EKG was interpreted by me personally was consistent with A-fib with RVR, however there intermittently appears to be P waves which could represent more of an atrial flutter pattern. 5 minutes after 20 mg IV diltiazem, patient's heart rate improved to the 70-90 range. Blood pressure remained stable. She does still appear to be in A-fib but without rapid ventricular response at this time on the monitor. Repeat EKG showed improvement of her heart rate to the low 100s but still in A-fib. Approximately 20 minutes later, patient's heart rate became more elevated into the 110-120 range again and patient is still symptomatic. Discussed with patient that can continue to try to rate control with medications, however given her symptoms, she would prefer cardioversion at this time. Given her symptoms started at 11 PM and she is anticoagulated, is felt that this is appropriate. Patient consented for synchronized cardioversion. Will do dissociative dose ketamine at 0.3 mg/kg and IV fentanyl for pain. Patient was still acutely awake with 0.3 mg/kg of ketamine and an additional 30 mg was given for total of 50 mg and she was resting more comfortably. She then received synchronized electrocardioversion at 120 J without resolution of her A-fib with RVR. Patient underwent 2 additional synchronized cardioversions at 200 J. After the third, it appeared that she was in sinus tach with improvement of her heart rate to 108 bpm, however she quickly jumped back into an irregular rhythm and was tachycardic into the 160 range. Repeat EKG shows continued A-fib with RVR. Rate is in the 130-140 range. Given this, will give another 20 mg IV diltiazem for better rate control. Also attempting to contact Dr. Negrete's office at this time. I spoke with cardiology team who agreed to come evaluate the patient. Upon cardiology evaluation, they recommended admission at this time. Patient is a patient of Dr. Motta. I discussed admission with him and he was amenable to admission at this time. I discussed admission with the patient and she was agreeable for admission at this time. Patient was then admitted to the stepdown unit for further management. Heart rate at this time is in the 90- 110 range but continues to be in A-fib. Procedures Procedural Sedation Presedation Evaluation: Patient was evaluated prior to sedation with fentanyl and ketamine. Airway equipment available at the bedside. Continued cardiac and pulse oximetry and pCO2 monitoring. Patient defibrillator pads appropriately placed. A heart and lung assessment was performed on this patient at: 08:20 Mallampati Score:: Class I Indication: other (Synchronized cardioversion) ASA Class: I Preparation: lunchroom monitor applied, pulse oximeter, capnometry used, supplemental O2 applied, suction/airway equipment at bedside and IV secured Fentanyl: IV Fentanyl dose (mcg): 50 Ketamine: IV Ketamine dose (mg): 50 Patient Tolerated Procedure: well Complications: none Interventions: oxygen applied Additional Comments: Patient returned to her preprocedural baseline after the procedure. No immediate complications Miscellaneous Procedure Procedure Performed: Electrical cardioversion Patient was placed on defibrillator monitor. Monitor showed A-fib with RVR with rate in the 140s. Patient was sedated using IV ketamine and fentanyl. Consent was obtained prior to procedure. Initial synchronized cardioversion attempted at 150 J. This was unsuccessful and she continued to remain in A-fib with RVR with rates in the 140s. Patient underwent additional synchronized cardioversion at 200 J, however this was also unsuccessful. 1 final electrical synchronized cardioversion was attempted at 200 J. She had a brief moment where she went into sinus tach with a rate at 110 bpm and lasted approximately 20 seconds, then she went back into A-fib with RVR with rates in the 140-160 range. At this time, no additional shocks were administered. Critical Care Critical Care Time Critical Care Time: Yes Attestation: On , the high probability of a clinically significant, sudden or life threatening deterioration of the following system(s) required my full and direct attention, intervention and personal management. The time I documented below is in addition to time spent performing reported procedures but includes the following listed in this critical care notation. Total Time Total Critical Care Time: 40
[2024-12-12 07:28] LABS: Hematocrit 45.3 % (37.0-47.0); Hemoglobin 15.9 g/dL (12.2-16.2); Immature Granulocytes % 0.3 %; Mean Corpuscular HGB Conc 35.1 g/dL (31.8-35.4); Mean Corpuscular Hemoglobin 33.1 pg (27.0-31.2); Mean Corpuscular Volume 94.2 fl (81-99); Nucleated Red Blood Cells % 0 %; Platelet Count 288 K/mm3 (142-424); Red Blood Count 4.81 M/mm3 (4.20-5.40); Red Cell Distribution Width-SD 41.7 fL; White Blood Count 7.8 K/mm3 (4.8-10.8)
[2024-12-12 07:44] LABS: Alanine Aminotransferase 19 U/L (12-78); Albumin Level 4.7 g/dl (3.5-5.0); Albumin/Globulin Ratio 1.6 (1.1-1.8); Alkaline Phosphatase 53 U/L (38-126); Anion Gap 10.0 mEq/L (5-15); Aspartate Amino Transferase 33 U/L (14-36); Bilirubin,Total 1.4 mg/dl (0.2-1.3); Blood Urea Nitrogen 9 mg/dl (7-17); Calcium 9.9 mg/dl (8.4-10.2); Carbon Dioxide 27 mmol/L (22.0-30.0); Chloride 107 mmol/L (98-107); Creatinine Clearance Estimated 106 mL/min (50-200); Creatinine,Serum 0.70 mg/dl (0.52-1.04); Estimated Glomerular Filt Rate 88 ml/min (>60); GFR (African American) 107 ML/MIN (>60); Globulin 3.0 g/dL (1.3-3.2); Glucose 102 mg/dl (74-100); Magnesium 2.0 mg/dl (1.6-2.3); Potassium 4.0 mmoL/L (3.5-5.1); Sodium 140 mmol/L (136-145); Total Protein,Serum 7.7 g/dl (6.3-8.2)
--- OUTSIDE RECORDS SUMMARY | 2024-12-12 07:50 | XMS_ITS | Clinical Summary ---
Author Organization Healthcare Address [address] [place] [address] Care Team Providers Care Transformer Builder Name Role Phone Unavailable Primary Care Provider [...] 2023 UKY-Zoster Vaccines (1 of 2) 2023 [id number]-60 Vaccine ( - season) 2024 03/25/2021, 06/21/2020, [...]
--- OUTSIDE RECORDS SUMMARY | 2024-12-12 07:50 | XMS_ITS | Clinical Summary ---
Author Organization [facility] Address [address] [place] [address] Care Team Providers Care Customer Associate Name Role Phone Shane Hall MD Primary Care Provider + [phone] Family History Medical History Relation Name Comments [...] to Health Maintenance Insurance [address], [place] [id number] [facility] PPO Care Teams Customer Associate Relationship Specialty Start Date End Date Shane Hall MD [address] [place] [facility] [address] [facility] [address] [place] [address] PCP - General Family Medicine 07/20/18
[2024-12-12 08:12] LABS: Troponin I < 0.01 ng/ml (0.00-0.034)
--- NOTE | 2024-12-12 08:30 | PC.NURSE ---
0831- TIME OUT CALLED,CRASH CART IN ROOM,AIRWAY BOX @[place] 0832 50mcg of fentanyl 0832 20mg of Ketamine 0833 141/97,137,99% 0834 30mg Ketamine 0836 150j Shock 0836 200j x2 0837 170/86, 130, 13,100% 0838 Repeat EKG 0842 165/101,98%,172 HR
[2024-12-12] MEDS: KETAMINE 50MG/1ML SYRINGE 20 MG IV (08:32)
[2024-12-12] MEDS: FENTANYL 100MCG/2ML VIAL 50 MCG IV (08:32)
--- NOTE | 2024-12-12 08:41 | ECG_ITS ---
APPROVED REPORT Exam: Resting ECG HR:160 bpm ECG Measurements Heart Rate 160 AXES QRSd 101 QRS 99 QT 275 T 66 QTc 364 Conclusion ATRIAL FIBRILLATION WITH RAPID VENTRICULAR RESPONSE BORDERLINE RIGHT AXIS DEVIATION [QRS AXIS > 90] MODERATE ST DEPRESSION [0.05+ mV ST DEPRESSION] CRITICAL TEST RESULT UNCONFIRMED REPORT A-fib with RVR. No ST elevations or depressions. Electronically signed by : RONY STATON, 12/12/2024 17:06:18
--- NOTE | 2024-12-12 08:44 | PC.NURSE ---
SPOKE WITH CARDIOLOGY OFFICE REQUESTING A CALL BACK
[2024-12-12] MEDS: ONDANSETRON 4MG/2ML VIAL 4 MG IV (09:07)
--- NOTE | 2024-12-12 09:18 | PC.NURSE ---
paged cardiology again
--- NOTE | 2024-12-12 09:19 | ECG_ITS ---
APPROVED REPORT Exam: Resting ECG HR:98 bpm ECG Measurements Heart Rate 98 AXES QRSd 98 QRS 99 QT 375 T 73 QTc 430 Conclusion ATRIAL FIBRILLATION BORDERLINE RIGHT AXIS DEVIATION [QRS AXIS > 90] ABNORMAL RHYTHM ECG UNCONFIRMED REPORT Atrial fibrillation without RVR. No ST elevation or depression. No T wave inversions Electronically signed by : RONY STATON, 12/12/2024 17:05:58
--- NOTE | 2024-12-12 09:22 | PC.NURSE ---
Dr. Mcclellan speaking with Carlin Rodriguez from cardiology office.
--- NOTE | 2024-12-12 09:39 | PC.NURSE ---
cardiology would like to admit pt
--- NOTE | 2024-12-12 09:47 | PC.NURSE ---
paged at this time.
[2024-12-12] MEDS: PROMETHAZINE HCL 25MG/ML 1ML VIAL 25 MG IV (10:12)
[2024-12-12] MEDS: SODIUM CHLORIDE 0.9% 25ML BAG 25 ML IV (10:13)
--- NOTE | 2024-12-12 10:21 | PC.NURSE ---
House technical administrator notified of need for bed.
--- NOTE | 2024-12-12 11:02 | PC.NURSE ---
report called to Carissa MERRITT
--- NOTE | 2024-12-12 11:20 | PC.NURSE ---
Patient arrived to ICU at this time. Continuation of care plan.
--- NOTE | 2024-12-12 11:40 | PC.NURSE ---
Primary RN notified 's office of patient on unit in room 261. Primary RN notified of home medications updated. Primary RN notified office of no VTE prophylaxis ordered. Continuation of care plan.
--- NOTE | 2024-12-12 12:46 | EXP.ACUTE.PN ---
Subjective *Date: 12/12/24 *Time: 12:46 Interval history: Patient has a history of A. fib. She takes diltiazem and Xarelto. She awoke from sleep last night around 11 pm with rapid heart rate. She came to the ER and was treated with calcium channel yair and was discharged home. Her symptoms returned fairly quickly so she came back to the ER and electric cardioversion was attempted but was unsuccessful. Cardiology requested admission fo rfurther treatment. Medical Exam Vital signs and Labs for Last 24 Hours: Vital Signs Temp Pulse Pulse Resp BP BP Pulse Ox 12/12/24 12:02 111 H 95 12/12/24 11:12 98 F 114 H 15 117/73 12/12/24 11:03 137 H 15 131/93 H 97 12/12/24 11:00 12/12/24 10:57 77 18 119/74 96 12/12/24 10:54 88 11 L 107/73 L 97 12/12/24 10:51 99 H 14 119/71 97 12/12/24 10:48 92 H 16 132/72 97 12/12/24 10:45 94 H 15 118/71 97 12/12/24 10:42 108 H 15 107/74 L 98 12/12/24 10:39 81 15 126/78 96 12/12/24 10:36 79 17 111/75 98 12/12/24 10:33 73 14 106/74 L 97 12/12/24 10:30 90 20 118/75 99 12/12/24 10:27 81 21 122/74 98 12/12/24 10:24 96 H 19 110/76 98 12/12/24 10:21 73 16 103/71 L 100 12/12/24 10:18 67 13 119/70 100 12/12/24 10:15 75 16 106/70 L 100 12/12/24 10:12 74 16 106/76 L 99 12/12/24 10:09 99 H 19 122/77 100 12/12/24 10:06 102 H 16 119/65 100 12/12/24 10:03 81 15 102/81 L 99 12/12/24 10:00 94 H 14 122/72 97 12/12/24 09:57 80 15 112/87 99 12/12/24 09:54 78 15 118/69 100 12/12/24 09:51 103 H 16 110/74 100 12/12/24 09:48 93 H 12 115/75 100 12/12/24 09:45 88 17 117/73 99 12/12/24 09:42 77 12 113/82 100 12/12/24 09:39 91 H 14 116/73 99 12/12/24 09:36 80 14 122/71 98 12/12/24 09:33 86 16 115/74 99 12/12/24 09:30 92 H 16 129/70 99 12/12/24 09:27 89 20 113/75 99 12/12/24 09:24 107 H 14 117/68 98 12/12/24 09:21 89 16 112/69 99 12/12/24 08:52 122 H 16 137/85 97 12/12/24 08:46 156 H 16 169/91 H 95 12/12/24 08:38 129 H 170/86 H 100 12/12/24 08:34 154 H 141/97 H 99 12/12/24 08:30 134 H 139/82 99 12/12/24 08:30 137 H 18 141/97 H 99 12/12/24 07:29 16 137/90 12/12/24 07:18 98.4 F 125 H 20 155/109 H 96 O2 Del Method O2 Flow Rate 12/12/24 12:02 Room Air 12/12/24 11:12 12/12/24 11:03 12/12/24 11:00 Room Air 12/12/24 10:57 Room Air 12/12/24 10:54 Room Air 12/12/24 10:51 Room Air 12/12/24 10:48 Room Air 12/12/24 10:45 Room Air 12/12/24 10:42 Room Air 12/12/24 10:39 Room Air 12/12/24 10:36 Room Air 12/12/24 10:33 12/12/24 10:30 12/12/24 10:27 12/12/24 10:24 12/12/24 10:21 12/12/24 10:18 12/12/24 10:15 12/12/24 10:12 12/12/24 10:09 12/12/24 10:06 12/12/24 10:03 12/12/24 10:00 12/12/24 09:57 12/12/24 09:54 12/12/24 09:51 12/12/24 09:48 12/12/24 09:45 12/12/24 09:42 12/12/24 09:39 12/12/24 09:36 12/12/24 09:33 12/12/24 09:30 12/12/24 09:27 12/12/24 09:24 12/12/24 09:21 12/12/24 08:52 Nasal Cannula 2 12/12/24 08:46 Nasal Cannula 2 12/12/24 08:38 Nasal Cannula 2 12/12/24 08:34 Nasal Cannula 2 12/12/24 08:30 Nasal Cannula 2 12/12/24 08:30 Nasal Cannula 2 12/12/24 07:29 12/12/24 07:18 Room Air Intake and Output 12/11/24 12/12/24 12/12/24 23:59 07:59 15:59 Output Total Balance - Output: Output, Urine Amount Other: Number of Unmeasured Voids 1 Weight 155 lb Patient Weight 12/12/24 23:59 Weight 155 lb Laboratory Results - last 24 hr 12/12/24 07:20: WBC 7.8, RBC 4.81, Hgb 15.9, Hct 45.3, MCV 94.2, MCH 33.1 H, MCHC 35.1, RDW 11.9, Plt Count 288, MPV 10.3, Neut % (Auto) 42.1, Lymph % (Auto) 45.5, [place] % (Auto) 9.0, Eos % (Auto) 2.1, Baso % (Auto) 1.0, Neut # (Auto) 3.3, Lymph # (Auto) 3.5, [place] # (Auto) 0.7, Eos # (Auto) 0.2, Baso # (Auto) 0.1, Sodium 140, Potassium 4.0, Chloride 107, Carbon Dioxide 27, Anion Gap 10.0, BUN 9, Creatinine 0.70, Estimated Creat Clear 106, Estimated GFR 88, Est GFR ( Amer) 107, Glucose 102 H, Calcium 9.9, Magnesium 2.0, Total Bilirubin 1.4 H, AST 33, ALT 19, Alkaline Phosphatase 53, Troponin I < 0.01, Total Protein 7.7, Albumin 4.7, Globulin 3.0, Albumin/Globulin Ratio 1.6 I & O for Labs for Last 24 Hours: Intake & Output 12/09/24 12/10/24 12/11/24 12/12/24 23:59 23:59 23:59 23:59 Output Total Balance - Weight 155 lb Constitutional: Present no acute distress Respiratory: Present normal respiratory effort Cardiac: Present Irregularly Regular GI: Present normal bowel sounds; Absent tenderness Extremities: Present normal inspection and full ROM Skin: Present intact; Absent erythema Neuro: Present Grossly Intact and moves all extremities Assessment and Plan *Assessment and plan (1) Atrial fibrillation with rapid ventricular response: Status: Acute Category: Medical Code(s): I48.91 - Unspecified atrial fibrillation (2) PAF (paroxysmal atrial fibrillation): Status: Chronic Category: Medical Code(s): I48.0 - Paroxysmal atrial fibrillation (3) Palpitations: Status: Chronic Category: Medical Code(s): R00.2 - Palpitations (4) Chest pain: Status: Acute Qualifiers: Chest pain type: unspecified Qualified Code(s): R07.9 - Chest pain, unspecified Category: Medical Code(s): R07.9 - Chest pain, unspecified Plan Patient admitted for further evaluation and treatment. Spoke to cardiology, they are planning on starting patient on Sotalol. H&P to follow.
--- NOTE | 2024-12-12 12:58 | PC.NURSE ---
Patients heart rhythm NSR at this time. notified. Cardiology aware. Continuation of care plan.
--- NOTE | 2024-12-12 13:02 | EXP.HP ---
History of Present Illness *Admission Date: 12/12/24 *Reason for visit:: rapid HR; at fib *History of present illness: ER HPI narrative: Monse [place] is a 49F with a history of paroxysmal A-fib on Xarelto, diltiazem who presents to the emergency department for complaints of heart palpitations and heavy beating in her chest. Patient states that last night at 11 PM, she felt an abnormal beating in her chest and came to the emergency department and was found to be in A-fib with RVR. She states that she was given an IV dose of diltiazem, which slowed her heart rate. They considered cardioversion, however she wanted to go home and rest to see if it got better. She notes that she has follow-up with Dr. Negrete this morning at 9 AM. She states that at home, she feels like her heart rate is fast again and feels a heavy beating that is irregular in her chest. She has some intermittent shortness of breath with it. The above as per ER documentation. Evaluation in the emergency room patient received a total of 40 mg of diltiazem IV fentanyl and Ketamine prior to cardioversion Zofran 4 mg IV plus promethazine 25 IV. EKG did show atrial fibrillation RVR. After some of the IV.tach exam she did slow her heart rate but did not it again increased to tachycardia. Patient received synchronized electrocardioversion 120 J up to 200 J x 3 total. She did appear to be in sinus tachycardia at 1 point but then quickly jump active into a regular heart rhythm. She was then discussed with cardiology who recommended admission. [facility] Disclaimer: The information contained in this section may have been updated after the patient was seen, as this information can be updated by other users. Medical History Deviated septum Pericardial effusion Sinus bradycardia Abnormal EKG Chest pain New onset atrial fibrillation Surgical History History of endometrial ablation Family History Other Diabetes Social History (Updated 12/12/24 @ 11:55 by Carissa Yeung RN) Smoking Status: Never smoker alcohol intake: never substance use type: denies use current occupational status: employed Travel in the last 8 weeks?: Inside the [place] Have you lived/traveled outside US in past 30 days?: No Contact w/someone who lives/traveled outside US past 30 days?: No Exposure to someone with infectious disease in past 14 days?: No Do you have a fever (greater than 100.4 F or 38 C)?: No Have you tested positive for COVID-19?: No Exposed to someone with COVID-19 in past 14 days?: No Do you have a sore throat?: No Do you have a cough?: No Do you have any weakness?: No Do you have any diarrhea?: No Are you experiencing any unusual bleeding?: No Do you have any muscle aches/pain?: No Do you have any abdominal pain?: No Are you experiencing loss of taste or smell?: No Other Medical History Have you received the Flu Vaccine for this season: No Have you received the Pneumonia Vaccine: No Review of Systems Constitutional Constitutional: Denies body ache(s), Denies difficulty sleeping, Denies fever(s) and Reports headache(s) Eyes Eyes: Denies change in vision ENT Ears, Nose, Mouth, and Throat: Denies otalgia, Reports headache(s), Denies post nasal drip and Denies sore throat *Cardiovascular Cardiovascular: Denies dyspnea, Denies edema, Reports irregular heart rhythm, Denies leg edema and Reports palpitations *Respiratory Respiratory: Denies chest congestion, Denies cough and Denies dyspnea *Gastrointestinal Gastrointestinal: Denies constipation, Denies dyspepsia, Denies loose stools, Denies nausea and Denies vomiting *Genitourinary Genitourinary: Denies difficulty voiding *Musculoskeletal Musculoskeletal: Denies arthralgias *Neurologic Neurologic: Reports headache(s) Endocrine Endocrine: Reports palpitations Meds Home Medications and Allergies Home Medications ?Medication ?Instructions ?Recorded ?Confirmed ?Type sertraline 25 mg tablet 25 mg PO DAILY depression 04/29/20 12/12/24 History diltiazem HCl 120 mg 120 mg PO DAILY 12/12/24 12/12/24 History capsule,extended release 24 hr norethindrone 1 mg-ethinyl 1 tab PO DAILY 12/12/24 12/12/24 History estradiol 10 mcg (24)-iron 10 mcg(2) tablet (Lo Loestrin Fe) rivaroxaban 20 mg tablet (Xarelto) 20 mg PO DAILY 12/12/24 12/12/24 History New Prescriptions to Start Prescriptions: Allergies Allergy/AdvReac Type Severity Reaction Status Date / Time No Known Allergies Allergy Verified 12/12/24 01:13 Exam Data for Last 24 hours Vital signs and Labs for Last 24 Hours: Temp Pulse Resp BP Pulse Ox O2 Del Method O2 Flow Rate 98 F 111 H 15 117/73 95 Room Air 2 12/12/24 11:12 12/12/24 12:02 12/12/24 11:12 12/12/24 11:12 12/12/24 12:02 12/12/24 12:02 12/12/24 08:52 Laboratory Results - last 24 hr 12/12/24 07:20: WBC 7.8, RBC 4.81, Hgb 15.9, Hct 45.3, MCV 94.2, MCH 33.1 H, MCHC 35.1, RDW 11.9, Plt Count 288, MPV 10.3, Neut % (Auto) 42.1, Lymph % (Auto) 45.5, Cameron % (Auto) 9.0, Eos % (Auto) 2.1, Baso % (Auto) 1.0, Neut # (Auto) 3.3, Lymph # (Auto) 3.5, Cameron # (Auto) 0.7, Eos # (Auto) 0.2, Baso # (Auto) 0.1, Sodium 140, Potassium 4.0, Chloride 107, Carbon Dioxide 27, Anion Gap 10.0, BUN 9, Creatinine 0.70, Estimated Creat Clear 106, Estimated GFR 88, Est GFR ( Amer) 107, Glucose 102 H, Calcium 9.9, Magnesium 2.0, Total Bilirubin 1.4 H, AST 33, ALT 19, Alkaline Phosphatase 53, Troponin I < 0.01, Total Protein 7.7, Albumin 4.7, Globulin 3.0, Albumin/Globulin Ratio 1.6 I & O for Last 24 hours: Intake & Output 12/10/24 12/11/24 12/12/24 12/13/24 11:59 11:59 11:59 11:59 Output Total Balance - Weight 155 lb Constitutional Constitutional: no acute distress Comments: Patient converted to sinus rhythm while in the room with a heart rate in the 70s. *Routine HEENT Exam Head: Present normocephalic and atraumatic Eye: Present PERRL; Absent conjunctival icterus, scleral injection or conjunctivae pink ENT: Present mucous membranes moist and oropharynx clear *Routine Neck Exam Neck: Present supple; Absent carotid bruit, lymphadenopathy or thyromegaly *Routine Respiratory Exam Respiratory: Present CTA bilaterally (Anteriorly and posteriorly) *Routine Cardiovascular Exam Cardiovascular: Present RRR (Patient converted to normal sinus rhythm while in the room without ventricular rate in the 70s) *Routine Abdominal Exam Abdominal: Present soft and normoactive bowel sounds; Absent tenderness or distended *Routine Rectal Exam Rectal:: deferred *Routine Genitalia Exam Genitalia:: deferred *Routine Extremities Exam Extremities: Present pulses intact; Absent edema, calf tenderness or tenderness *Routine Neurological Exam Neurological: Present alert and oriented X3 Assessment and Plan *Assessment and plan (1) Atrial fibrillation with rapid ventricular response: Status: Acute Category: Medical Code(s): I48.91 - Unspecified atrial fibrillation (2) PAF (paroxysmal atrial fibrillation): Status: Chronic Category: Medical Code(s): I48.0 - Paroxysmal atrial fibrillation (3) Palpitations: Status: Chronic Category: Medical Code(s): R00.2 - Palpitations (4) Chest pain: Status: Acute Qualifiers: Chest pain type: unspecified Qualified Code(s): R07.9 - Chest pain, unspecified Category: Medical Code(s): R07.9 - Chest pain, unspecified Plan Patient admitted for further evaluation and treatment. Spoke to cardiology, they are planning on starting patient on Sotalol.
--- NOTE | 2024-12-12 13:07 | ECG_ITS ---
APPROVED REPORT Exam: Resting ECG HR:64 bpm ECG Measurements Heart Rate 64 AXES AK 169 P 72 QRSd 96 QRS 45 QT 399 T 74 QTc 409 Conclusion SINUS RHYTHM NORMAL ECG UNCONFIRMED REPORT Electronically signed by : Rd Zhang MD 12/13/2024 07:54:44
--- NOTE | 2024-12-12 13:07 | PC.NURSE ---
EKG obtained. Solange Rodriguez reviewed and signed EKG. Continuation of care plan.
[2024-12-12] MEDS: SOTALOL 80MG TABLET 80 MG PO ×2 (13:14→20:32)
--- NOTE | 2024-12-12 13:43 | EXP.CARD.CON ---
History of Present Illness History of Present Illness Consult date: 12/12/24 Requesting physician: Shane Hall Consult reason: atrial fibrillation Chief complaint: rapid HR, atrial fibrillation History of present illness: This is a 49-year-old white female who presented to the emergency department with complaints of a rapid heart rate and palpitations. The patient states that she had sudden onset of palpitations around 11 PM last night. She states that she felt her heart beating very fast and very hard in her chest. She states that this just progressively worsened and got scared so she came to the emergency department. She was found to be in atrial fibrillation with RVR. She was given a dose of IV diltiazem and her heart rate did slow down. She was discharged from the emergency department and got home. Her heart rate started beating fast again so she came to the emergency department because she knew she was back in atrial fibrillation. She was back in atrial fibrillation with RVR. She was treated with another dose of IV diltiazem as well as fentanyl and ketamine and did undergo cardioversion which was unsuccessful in converting her to sinus rhythm but her heart rate did slow down. She was then admitted to the hospital. The patient has subsequently converted to sinus rhythm at this time. She states she is feeling better now that she is in sinus rhythm but she is just feeling very tired and fatigued. She states that she still feels very lethargic from the sedation medication that they gave her for the cardioversion. She denies any palpitations or racing of the heart. She denies any chest pain or pressure. She denies any shortness of breath or edema. [facility] Disclaimer: The information contained in this section may have been updated after the patient was seen, as this information can be updated by other users. Medical History (Updated 12/12/24 @ 13:48 by Solange Rodriguez APRN) Dyspnea Deviated septum Pericardial effusion Sinus bradycardia Abnormal EKG Chest pain New onset atrial fibrillation Surgical History History of endometrial ablation Family History Other Diabetes Social History (Updated 12/12/24 @ 11:55 by Carissa Yeung RN) Smoking Status: Never smoker alcohol intake: never substance use type: denies use current occupational status: employed Travel in the last 8 weeks?: Inside the [place] Have you lived/traveled outside US in past 30 days?: No Contact w/someone who lives/traveled outside US past 30 days?: No Exposure to someone with infectious disease in past 14 days?: No Do you have a fever (greater than 100.4 F or 38 C)?: No Have you tested positive for COVID-19?: No Exposed to someone with COVID-19 in past 14 days?: No Do you have a sore throat?: No Do you have a cough?: No Do you have any weakness?: No Do you have any diarrhea?: No Are you experiencing any unusual bleeding?: No Do you have any muscle aches/pain?: No Do you have any abdominal pain?: No Are you experiencing loss of taste or smell?: No Review of Systems Review of Systems Review of systems:: pertinent systems reviewed and negative unless documented below Constitutional Constitutional: Reports system reviewed and no additional complaints, except as documented, Reports lethargy and Reports weakness Eyes Eyes: Reports system reviewed and no additional complaints, except as documented ENT Ears, Nose, Mouth, and Throat: Reports system reviewed and no additional complaints, except as documented *Cardiovascular Cardiovascular: Reports system reviewed and no additional complaints, except as documented, Denies chest pain, Reports dyspnea, Reports irregular heart rhythm, Reports palpitations and Reports rapid heart rate *Respiratory Respiratory: Reports system reviewed and no additional complaints, except as documented and Reports dyspnea *Gastrointestinal Gastrointestinal: Reports system reviewed and no additional complaints, except as documented *Genitourinary Genitourinary: Reports system reviewed and no additional complaints, except as documented *Musculoskeletal Musculoskeletal: Reports system reviewed and no additional complaints, except as documented Integumentary/Breasts Skin/Breast: Reports system reviewed and no additional complaints, except as documented *Neurologic Neurologic: Reports system reviewed and no additional complaints, except as documented and Reports weakness Psychiatric Psychiatric: Reports system reviewed and no additional complaints, except as documented Endocrine Endocrine: Reports system reviewed and no additional complaints, except as documented and Reports palpitations Hematologic/Lymphatic Hematologic/Lymphatic: Reports system reviewed and no additional complaints, except as documented Allergic/Immunologic Allergic/Immunologic: Reports system reviewed and no additional complaints, except as documented Exam Data for Last 24 hours Vital signs and Labs for Last 24 Hours: Temp Pulse Resp BP Pulse Ox O2 Del Method O2 Flow Rate 98 F 110 H 15 117/73 95 Room Air 2 07/22/25 11:12 12/12/24 12:16 12/12/24 11:12 12/12/24 11:12 12/12/24 12:02 12/12/24 13:00 12/12/24 08:52 Laboratory Results - last 24 hr 12/12/24 07:20: WBC 7.8, RBC 4.81, Hgb 15.9, Hct 45.3, MCV 94.2, MCH 33.1 H, MCHC 35.1, RDW 11.9, Plt Count 288, MPV 10.3, Neut % (Auto) 42.1, Lymph % (Auto) 45.5, [place]ton % (Auto) 9.0, Eos % (Auto) 2.1, Baso % (Auto) 1.0, Neut # (Auto) 3.3, Lymph # (Auto) 3.5, Charlton # (Auto) 0.7, Eos # (Auto) 0.2, Baso # (Auto) 0.1, Sodium 140, Potassium 4.0, Chloride 107, Carbon Dioxide 27, Anion Gap 10.0, BUN 9, Creatinine 0.70, Estimated Creat Clear 106, Estimated GFR 88, Est GFR ( Amer) 107, Glucose 102 H, Calcium 9.9, Magnesium 2.0, Total Bilirubin 1.4 H, AST 33, ALT 19, Alkaline Phosphatase 53, Troponin I < 0.01, Total Protein 7.7, Albumin 4.7, Globulin 3.0, Albumin/Globulin Ratio 1.6 I & O for Last 24 hours: Intake & Output 12/09/24 12/10/24 12/11/24 12/12/24 23:59 23:59 23:59 23:59 Output Total Balance - Weight 155 lb Constitutional Constitutional: no acute distress and average body habitus *Routine HEENT Exam Head: Present normocephalic and atraumatic ENT: Present mucous membranes moist *Routine Neck Exam Neck: Present supple, full ROM and normal carotid upstroke; Absent JVD, carotid bruit or lymphadenopathy *Routine Respiratory Exam Respiratory: Present CTA bilaterally, normal respiratory effort, able to speak in complete sentences and symmetric chest movement *Routine Cardiovascular Exam Cardiovascular: Present RRR, Normal S1 and Normal S2; Absent murmur or gallop *Routine Abdominal Exam Abdominal: Present soft and normoactive bowel sounds; Absent tenderness, distended or organomegaly *Routine Extremities Exam Extremities: Present full ROM, pulses intact and normal capillary refill; Absent cyanosis, clubbing or edema *Routine Skin Exam Skin: Present intact and warm; Absent erythema *Routine Neurological Exam Neurological: Present alert, oriented X3 and CN II-XII intact; Absent sensory deficit or motor deficit Routine Psychiatric Exam Psychiatric: Present normal affect Meds Home Medications and Allergies Home Medications ?Medication ?Instructions ?Recorded ?Confirmed ?Type sertraline 25 mg tablet 25 mg PO DAILY depression 04/29/20 12/12/24 History diltiazem HCl 120 mg 120 mg PO DAILY 12/12/24 12/12/24 History capsule,extended release 24 hr norethindrone 1 mg-ethinyl 1 tab PO DAILY 12/12/24 12/12/24 History estradiol 10 mcg (24)-iron 10 mcg(2) tablet (Lo Loestrin Fe) rivaroxaban 20 mg tablet (Xarelto) 20 mg PO DAILY 12/12/24 12/12/24 History New Prescriptions to Start Prescriptions: Allergies Allergy/AdvReac Type Severity Reaction Status Date / Time No Known Allergies Allergy Verified 12/12/24 01:13 Assessment and Plan *Assessment and plan (1) Atrial fibrillation with rapid ventricular response: Status: Acute Category: Medical Code(s): I48.91 - Unspecified atrial fibrillation (2) Palpitations: Status: Chronic Category: Medical Code(s): R00.2 - Palpitations (3) Dyspnea: Status: Acute Qualifiers: Dyspnea type: shortness of breath Qualified Code(s): R06.02 - Shortness of breath Category: Medical Code(s): R06.00 - Dyspnea, unspecified Plan Plan: 1. The patient presented to the emergency department found to be in atrial fibrillation with RVR. She underwent unsuccessful cardioversion and then subsequently converted to sinus rhythm once she got moved to the intensive care unit with no further medications given. Will start the patient on sotalol 80 mg p.o. twice daily for suppression of her atrial fibrillation. Will give her first dose this afternoon with a repeat dose this evening. 2. Repeat EKG in the morning to evaluate her QTc interval. If her QTc interval is not prolonged then we will continue sotalol 80 mg p.o. twice daily thereafter. 3. Will repeat an echocardiogram at this time to evaluate her LV function. She does have a history of having a small pericardial effusion which we want to make sure has resolved as well. 4. She denies any chest pain or pressure. She ruled out for an [place]. No plans for invasive left cardiac catheterization at this time. 5. Her blood pressure is well-controlled. 6. Her LDL goal is less than 100. 7. Continue Xarelto for long-term anticoagulation. 8. Will hold her diltiazem at this time since her blood pressure is on the lower side. 9. Anticipate discharge home tomorrow with sotalol as long as her QTc is not prolonged. If she does discharge home tomorrow she will need to come back and to the office on for 1 more EKG after the initiation of sotalol. The patient has verbalized understanding of this and is agreeable with this plan. 10. Further recommendations will be made pending the patient's response to treatment. Thank you for the opportunity to participate in the care of this patient. All recommendations and orders are per Dr. Diaz.
--- NOTE | 2024-12-12 13:48 | CA_ITS ---
APPROVED REPORT EXAM: Comprehensive 2D, Doppler, and color-flow Echocardiogram Chef French: Carol Domínguez RT(R) Ht: 5 ft 9 in Wt: 155lbs BSA: 1.85 BP: 117/73 mmHg Indications: AFIB with RVR, cardioversion, converted with medicine, hx pericardial effusion 2D Dimensions LVEF (Jarquin's) 66.20 % F: 54 - 74 LV Volume 89.00 mL F: 46 - 106 LV Volume Index 47.8 mL/m2 F: 29 - 61 LA Volume 27.20 mL LA Volume Index 14.62 mL/m2 (M/F) 16-34 EF AP4 59.50 % EF AP2 69.9 % EF BP 66.2 % GL Strain -16.6 % M-Mode Dimensions RVDd 2.31 cm (0.9-2.6) LA Diam 2.83 cm (1.9-4.0) LVDd 4.35 cm (3.5-5.7) LVDs 3.15 cm (3.5-5.7) IVSd 0.77 cm (0.6-1.1) PWd 0.60 cm (0.6-1.1) EF (Teich) 53.90% FS 27.60% EDV (Teich) 85.40 mL TAPSE 1.45 (<1.7) ESV (Teich) 39.40 mL LV Diastology E Decel Time 283 (160-240 msec) E/A Ratio 1.6 Mitral Valve MV E Max Srini. 74.0 (40-130 cm/s) MV A Velocity 47.0 (40-130 cm/s) E/A Ratio 1.57 MV PHT 83.0 ms Left Ventricle The left ventricle is normal size. The left ventricular systolic function is normal. The left ventricular ejection fraction is within the normal range. There is increased LV wall thickness. There is normal LV segmental wall motion. Diastolic function is indeterminate. LVEF is 55%. Right Ventricle The right ventricle is normal size. The right ventricular systolic function is normal. Atria Left atrium is mildly dilated. Right atrium is mildly dilated. There is no Doppler evidence of interatrial shunt. Aortic Valve The aortic valve is mildly thickened. There is no aortic valvular stenosis. Trace aortic regurgitation. Mitral Valve The mitral valve is normal in structure. Mild mitral regurgitation. Tricuspid Valve Tricuspid valve is grossly normal in structure and function. Trace tricuspid regurgitation. There is insufficient TR jet to estimate RVSP. Pulmonic Valve The pulmonary valve is normal in structure. Trace pulmonic regurgitation. Great Vessels IVC is normal in size and collapses >50% with inspiration. Pericardium There is no pericardial effusion. Other Information Study Quality: Fair Conclusion Normal biventricular systolic function. Mild biatrial dilation. Mild MR. Electronically signed by : Dhara Diaz MD 12/12/2024 15:55:21
--- NOTE | 2024-12-12 16:00 | PC.NURSE ---
Report given to Liudmila Iglesias RN. Continuation of care plan.
--- NOTE | 2024-12-12 16:44 | PC.NURSE ---
pt assisted to [facility]
--- NOTE | 2024-12-12 17:00 | PC.NURSE ---
Report recieved from SHAINA Nur. Report given to SHAINA Ferrer. Continuation of care plan.
[2024-12-12] MEDS: ACETAMINOPHEN 325MG TAB 650 MG PO (21:43)
[2024-12-13] VITALS (10 sets, daily range): BP systolic 92–118; BP diastolic 48–73; PULSE 55–70; RESP 11–16; TEMP 36.8–37.1; O2SAT 93–99; BMI 24.1
[2024-12-13] MEDS: SERTRALINE 50MG TABLET 25 MG PO (07:52)
--- NOTE | 2024-12-13 08:23 | EXP.ACUTE.PN ---
Subjective *Date: 12/13/24 *Time: 12:24 Interval history: Patient is feeling well this am. She has remained in sinus rhythm and wants to go home. She does have a rash on her chest from adhesive and would like steroid cream. Medical Exam Vital signs and Labs for Last 24 Hours: Vital Signs Temp Pulse Pulse Resp BP BP Pulse Ox 12/13/24 08:18 98.7 F 69 11 L 116/71 12/13/24 07:30 65 12 93 L 12/13/24 06:56 12/13/24 06:00 62 14 100/49 L 94 L 12/13/24 05:00 12/13/24 04:00 98.2 F 55 L 14 107/64 L 94 L 12/13/24 04:00 60 12/13/24 03:00 12/13/24 02:00 60 93 L 12/13/24 02:00 61 14 102/63 L 94 L 12/13/24 01:00 12/13/24 00:00 60 12/13/24 00:00 98.6 F 58 L 14 92/48 L 94 L 12/12/24 23:00 12/12/24 22:00 62 14 109/70 L 96 12/12/24 20:40 12/12/24 20:00 70 12/12/24 20:00 99.0 F 62 14 105/64 L 95 12/12/24 19:59 64 95 12/12/24 19:00 66 13 108/68 L 95 12/12/24 18:31 12/12/24 17:30 55 L 13 97 12/12/24 17:15 63 10 L 97 12/12/24 17:00 55 L 10 L 104/71 L 95 12/12/24 17:00 12/12/24 16:59 57 L 12/12/24 16:48 60 12 94 L 12/12/24 16:30 57 L 12 95 12/12/24 16:15 53 L 11 L 96 12/12/24 16:00 59 L 14 102/68 L 95 12/12/24 16:00 55 L 16 102/68 L 95 12/12/24 15:45 58 L 13 95 12/12/24 15:36 98.3 F 12/12/24 15:30 56 L 14 95 12/12/24 15:15 55 L 14 94 L 12/12/24 15:00 57 L 15 100/63 L 94 L 12/12/24 14:57 12/12/24 14:45 59 L 14 94 L 12/12/24 14:30 63 15 95 12/12/24 14:15 60 16 95 12/12/24 14:00 59 L 14 90/52 L 94 L 12/12/24 13:45 63 16 94 L 12/12/24 13:30 64 14 97 12/12/24 13:15 69 14 96 12/12/24 13:00 68 15 110/70 96 12/12/24 13:00 12/12/24 12:45 115 H 13 95 12/12/24 12:30 105 H 18 96 12/12/24 12:16 110 H 12/12/24 12:15 78 16 95 12/12/24 12:08 97 H 14 112/68 95 12/12/24 12:02 111 H 95 12/12/24 12:00 93 H 16 95 12/12/24 11:45 88 14 97 12/12/24 11:30 91 H 20 96 12/12/24 11:28 116 H 94 L 12/12/24 11:12 122 H 13 117/73 97 12/12/24 11:12 98 F 114 H 15 117/73 12/12/24 11:09 89 15 113/77 97 12/12/24 11:06 87 13 123/82 97 12/12/24 11:03 90 17 98/75 L 97 12/12/24 11:03 137 H 15 131/93 H 97 12/12/24 11:00 103 H 16 119/74 97 12/12/24 11:00 12/12/24 10:57 77 18 119/74 96 12/12/24 10:54 88 11 L 107/73 L 97 12/12/24 10:51 99 H 14 119/71 97 12/12/24 10:48 92 H 16 132/72 97 12/12/24 10:45 94 H 15 118/71 97 12/12/24 10:42 108 H 15 107/74 L 98 12/12/24 10:39 81 15 126/78 96 12/12/24 10:36 79 17 111/75 98 12/12/24 10:33 73 14 106/74 L 97 12/12/24 10:30 90 20 118/75 99 12/12/24 10:27 81 21 122/74 98 12/12/24 10:24 96 H 19 110/76 98 12/12/24 10:21 73 16 103/71 L 100 12/12/24 10:18 67 13 119/70 100 12/12/24 10:15 75 16 106/70 L 100 12/12/24 10:12 74 16 106/76 L 99 12/12/24 10:09 99 H 19 122/77 100 12/12/24 10:06 102 H 16 119/65 100 12/12/24 10:03 81 15 102/81 L 99 12/12/24 10:00 94 H 14 122/72 97 12/12/24 09:57 80 15 112/87 99 12/12/24 09:54 78 15 118/69 100 12/12/24 09:51 103 H 16 110/74 100 12/12/24 09:48 93 H 12 115/75 100 12/12/24 09:45 88 17 117/73 99 12/12/24 09:42 77 12 113/82 100 12/12/24 09:39 91 H 14 116/73 99 12/12/24 09:36 80 14 122/71 98 12/12/24 09:33 86 16 115/74 99 12/12/24 09:30 92 H 16 129/70 99 12/12/24 09:27 89 20 113/75 99 12/12/24 09:24 107 H 14 117/68 98 12/12/24 09:21 89 16 112/69 99 12/12/24 08:52 122 H 16 137/85 97 12/12/24 08:46 156 H 16 169/91 H 95 12/12/24 08:38 129 H 170/86 H 100 12/12/24 08:34 154 H 141/97 H 99 12/12/24 08:30 134 H 139/82 99 12/12/24 08:30 137 H 18 141/97 H 99 O2 Del Method O2 Flow Rate 12/13/24 08:18 12/13/24 07:30 12/13/24 06:56 Room Air 12/13/24 06:00 Room Air 12/13/24 05:00 Room Air 12/13/24 04:00 Room Air 12/13/24 04:00 12/13/24 03:00 Room Air 12/13/24 02:00 Room Air 12/13/24 02:00 Room Air 12/13/24 01:00 Room Air 12/13/24 00:00 12/13/24 00:00 Room Air 12/12/24 23:00 Room Air 12/12/24 22:00 Room Air 12/12/24 20:40 Room Air 12/12/24 20:00 12/12/24 20:00 Room Air 12/12/24 19:59 Room Air 12/12/24 19:00 Room Air 12/12/24 18:31 Room Air 12/12/24 17:30 Room Air 12/12/24 17:15 Room Air 12/12/24 17:00 Room Air 12/12/24 17:00 Room Air 12/12/24 16:59 12/12/24 16:48 Room Air 12/12/24 16:30 Room Air 12/12/24 16:15 12/12/24 16:00 Room Air 12/12/24 16:00 Room Air 12/12/24 15:45 Room Air 12/12/24 15:36 12/12/24 15:30 Room Air 12/12/24 15:15 Room Air 12/12/24 15:00 Room Air 12/12/24 14:57 Room Air 12/12/24 14:45 Room Air 12/12/24 14:30 Room Air 12/12/24 14:15 Room Air 12/12/24 14:00 Room Air 12/12/24 13:45 Room Air 12/12/24 13:30 Room Air 12/12/24 13:15 Room Air 12/12/24 13:00 Room Air 12/12/24 13:00 Room Air 12/12/24 12:45 Room Air 12/12/24 12:30 Room Air 12/12/24 12:16 12/12/24 12:15 Room Air 12/12/24 12:08 Room Air 12/12/24 12:02 Room Air 12/12/24 12:00 Room Air 12/12/24 11:45 Room Air 12/12/24 11:30 Room Air 12/12/24 11:28 Room Air 12/12/24 11:12 Room Air 12/12/24 11:12 12/12/24 11:09 Room Air 12/12/24 11:06 Room Air 12/12/24 11:03 Room Air 12/12/24 11:03 12/12/24 11:00 Room Air 12/12/24 11:00 Room Air 12/12/24 10:57 Room Air 12/12/24 10:54 Room Air 12/12/24 10:51 Room Air 12/12/24 10:48 Room Air 12/12/24 10:45 Room Air 12/12/24 10:42 Room Air 12/12/24 10:39 Room Air 12/12/24 10:36 Room Air 12/12/24 10:33 12/12/24 10:30 12/12/24 10:27 12/12/24 10:24 12/12/24 10:21 12/12/24 10:18 12/12/24 10:15 12/12/24 10:12 12/12/24 10:09 12/12/24 10:06 12/12/24 10:03 12/12/24 10:00 12/12/24 09:57 12/12/24 09:54 12/12/24 09:51 12/12/24 09:48 12/12/24 09:45 12/12/24 09:42 12/12/24 09:39 12/12/24 09:36 12/12/24 09:33 12/12/24 09:30 12/12/24 09:27 12/12/24 09:24 12/12/24 09:21 12/12/24 08:52 Nasal Cannula 2 12/12/24 08:46 Nasal Cannula 2 12/12/24 08:38 Nasal Cannula 2 12/12/24 08:34 Nasal Cannula 2 12/12/24 08:30 Nasal Cannula 2 12/12/24 08:30 Nasal Cannula 2 Intake and Output 12/12/24 12/13/24 12/13/24 19:59 03:59 11:59 Intake Total 475 / 475 Output Total 0 0 Balance 474 / 474 0 / 474 0 / 474 Intake: Intake, Oral Amount 475 / 475 Output: Output, Urine Amount 0 0 Other: Number of Unmeasured Voids 1 1 1 Weight 163 lb Patient Weight 12/13/24 11:59 Weight 163 lb I & O for Labs for Last 24 Hours: Intake & Output 12/10/24 12/11/24 12/12/24 12/13/24 11:59 11:59 11:59 11:59 Intake Total 475 / 475 Output Total Balance 474 / 474 Weight 155 lb 163 lb Constitutional: Present no acute distress Respiratory: Present normal respiratory effort Cardiac: Present Reg Rate and Rhythm GI: Present normal bowel sounds; Absent tenderness Extremities: Present normal inspection and full ROM Skin: Present intact and erythema (rash on the mid chest) Neuro: Present Grossly Intact and moves all extremities Assessment and Plan *Assessment and plan (1) Atrial fibrillation with rapid ventricular response: Status: Acute Category: Medical Code(s): I48.91 - Unspecified atrial fibrillation (2) Palpitations: Status: Chronic Category: Medical Code(s): R00.2 - Palpitations (3) Dyspnea: Status: Acute Qualifiers: Dyspnea type: shortness of breath Qualified Code(s): R06.02 - Shortness of breath Category: Medical Code(s): R06.00 - Dyspnea, unspecified (4) PAF (paroxysmal atrial fibrillation): Status: Chronic Category: Medical Code(s): I48.0 - Paroxysmal atrial fibrillation (5) Chest pain: Status: Acute Qualifiers: Chest pain type: unspecified Qualified Code(s): R07.9 - Chest pain, unspecified Category: Medical Code(s): R07.9 - Chest pain, unspecified (6) Rash: Status: Acute Category: Medical Code(s): R21 - Rash and other nonspecific skin eruption Plan Can likely be discharged today. She will need to be seen by cardiology. Will start on triamcinolone. Dr. Hall entry - Saw patient, agree with above note. OK to discharge home today on Sotalol, f/u with cardiology tomorrow morning.
[2024-12-13] MEDS: TRIAMCINOLONE ACETONIDE CREAM 30GM TUBE TP (08:50)
--- NOTE | 2024-12-13 09:04 | ECG_ITS ---
APPROVED REPORT Exam: Resting ECG HR:55 bpm ECG Measurements Heart Rate 55 AXES IN 167 P 80 QRSd 110 QRS 78 QT 413 T 79 QTc 403 Conclusion SINUS BRADYCARDIA BORDERLINE ECG UNCONFIRMED REPORT Electronically signed by : Rd Zhang MD 12/15/2024 07:56:38
[2024-12-13] MEDS: SOTALOL 80MG TABLET 80 MG PO (10:46)
--- NOTE | 2024-12-13 12:34 | P.PN_ITS ---
Subjective Subjective Date: 12/13/24 Time: 08:30 Principal diagnosis: afib with RVR Interval history: This is a 49-year-old female presented to the emergency department with complaints of a rapid heart rate and palpitations. She was in atrial fibrillation with RVR. She did convert to sinus rhythm yesterday and has been started on sotalol. Her QTc today is less than 460 ms. Will continue sotalol for suppression of her atrial fibrillation. Today she denies any chest pain or pressure. She denies any shortness of breath or edema. She denies any palpitations or racing of the heart. She denies any fever, chills, nausea, vomiting, diarrhea, PND or orthopnea. Exam Data for Last 24 hours Vital signs and Labs for Last 24 Hours: Temp Pulse Resp BP Pulse Ox O2 Del Method O2 Flow Rate 98.6 F 70 16 115/66 99 Room Air 2 12/13/24 12:01 12/13/24 12:01 12/13/24 12:01 12/13/24 12:01 12/13/24 12:01 12/13/24 11:40 12/12/24 08:52 I & O for Last 24 hours: Intake & Output 12/10/24 12/11/24 12/12/24 12/13/24 23:59 23:59 23:59 23:59 Intake Total 475 / 475 120 / 120 Output Total / 0 / 0 Balance 474 / 474 120 / 120 Weight 155 lb 163 lb Constitutional Constitutional: no acute distress and average body habitus *Routine HEENT Exam Head: Present normocephalic and atraumatic ENT: Present mucous membranes moist *Routine Neck Exam Neck: Present supple, full ROM and normal carotid upstroke; Absent JVD, carotid bruit or lymphadenopathy *Routine Respiratory Exam Respiratory: Present CTA bilaterally, normal respiratory effort, able to speak in complete sentences and symmetric chest movement *Routine Cardiovascular Exam Cardiovascular: Present RRR, Normal S1 and Normal S2; Absent murmur or gallop *Routine Abdominal Exam Abdominal: Present soft and normoactive bowel sounds; Absent tenderness, distended or organomegaly *Routine Extremities Exam Extremities: Present full ROM, pulses intact and normal capillary refill; Absent cyanosis, clubbing or edema *Routine Skin Exam Skin: Present intact and warm; Absent erythema *Routine Neurological Exam Neurological: Present alert, oriented X3 and CN II-XII intact; Absent sensory d eficit or motor deficit Routine Psychiatric Exam Psychiatric: Present normal affect Progress Note: A&P Assessment and plan (1) Atrial fibrillation with rapid ventricular response: Status: Acute (2) PAF (paroxysmal atrial fibrillation): Status: Chronic Assessment and Plan Assessment and Plan for All Diagnoses:: Plan: 1. The patient presented to the emergency department found to be in atrial fibrillation with RVR. She underwent unsuccessful cardioversion and then subsequently converted to sinus rhythm once she got moved to the intensive care unit with no further medications given. She remains in sinus rhythm today. 2. QTc interval is less than 460 ms. Continue sotalol 80 mg p.o. twice daily for suppression of atrial fibrillation. 3. EF is normal and no pericardial effusion is noted. 4. She denies any chest pain or pressure. She ruled out for an UT. No plans for invasive left cardiac catheterization at this time. 5. Her blood pressure is well-controlled. 6. Her LDL goal is less than 100. 7. Continue Xarelto for long-term anticoagulation. 8. Discontinue diltiazem 9. The patient is stable for discharge home today on sotalol 80 mg p.o. twice daily. Stop diltiazem. She will need to come into the cardiology clinic tomorrow morning at 9 AM for an EKG to evaluate her QTc interval. Then she will follow-up next week in cardiology clinic. Cardiology discharge medications: Sotalol 80 mg p.o. twice daily Xarelto 20 mg p.o. daily Thank you for the opportunity to participate in the care of this patient. All recommendations and orders are per Dr. Diaz.
--- NOTE | 2024-12-13 15:41 | EXP.DC.SUM ---
General Admission date:: 12/12/24 Discharge date: 12/13/24 HPI HPI HPI: ER HPI narrative: Monse [place] is a 49F with a history of paroxysmal A-fib on Xarelto, diltiazem who presents to the emergency department for complaints of heart palpitations and heavy beating in her chest. Patient states that last night at 11 PM, she felt an abnormal beating in her chest and came to the emergency department and was found to be in A-fib with RVR. She states that she was given an IV dose of diltiazem, which slowed her heart rate. They considered cardioversion, however she wanted to go home and rest to see if it got better. She notes that she has follow-up with Dr. Negrete this morning at 9 AM. She states that at home, she feels like her heart rate is fast again and feels a heavy beating that is irregular in her chest. She has some intermittent shortness of breath with it. The above as per ER documentation. Evaluation in the emergency room patient received a total of 40 mg of diltiazem IV fentanyl and Ketamine prior to cardioversion Zofran 4 mg IV plus promethazine 25 IV. EKG did show atrial fibrillation RVR. After some of the IV.tach exam she did slow her heart rate but did not it again increased to tachycardia. Patient received synchronized electrocardioversion 120 J up to 200 J x 3 total. She did appear to be in sinus tachycardia at 1 point but then quickly jump active into a regular heart rhythm. She was then discussed with cardiology who recommended admission. Hospital Course Hospital Course Hospital Course: The patient was admitted and cardiology planned to start the patient on sotalol. She subsequently converted to sinus rhythm after admission to the floor and began feeling much better. Cardiology gave her 80 mg of sotalol twice a day to suppress the A-fib and wanted a repeat EKG the next day to evaluate her QTc interval. If the interval was not prolonged, they felt she could be discharged home on sotalol twice daily thereafter. They also ordered an echo. The patient remained in sinus rhythm and cardiology felt she was stable to be discharged. They want to see her in the cardiology clinic tomorrow at 9 AM for an EKG to evaluate her QTc interval. She was discharged home on 80 mg of sotalol twice a day and Xarelto 20 mg daily. Exam Data for Last 24 hours Vital signs and Labs for Last 24 Hours: Temp Pulse Resp BP Pulse Ox O2 Del Method O2 Flow Rate 98.6 F 64 16 115/66 99 Room Air 2 12/13/24 12:01 12/13/24 12:13 12/13/24 12:01 12/13/24 12:01 12/13/24 12:01 12/13/24 11:40 12/12/24 08:52 I & O for Last 24 hours: Intake & Output 12/11/24 12/12/24 12/13/24 12/14/24 11:59 11:59 11:59 11:59 Intake Total 595 / 595 240 / 240 Output Total Balance 594 / 594 240 / 240 Weight 155 lb 163 lb Narrative: Constitutional Constitutional: no acute distress Comments: Patient converted to sinus rhythm while in the room with a heart rate in the 70s. *Routine HEENT Exam Head: Present normocephalic and atraumatic Eye: Present PERRL; Absent conjunctival icterus, scleral injection or conjunctivae pink ENT: Present mucous membranes moist and oropharynx clear *Routine Neck Exam Neck: Present supple; Absent carotid bruit, lymphadenopathy or thyromegaly *Routine Respiratory Exam Respiratory: Present CTA bilaterally (Anteriorly and posteriorly) *Routine Cardiovascular Exam Cardiovascular: Present RRR (Patient converted to normal sinus rhythm while in the room without ventricular rate in the 70s) *Routine Abdominal Exam Abdominal: Present soft and normoactive bowel sounds; Absent tenderness or distended *Routine Rectal Exam Rectal:: deferred *Routine Genitalia Exam Genitalia:: deferred *Routine Extremities Exam Extremities: Present pulses intact; Absent edema, calf tenderness or tenderness *Routine Neurological Exam Neurological: Present alert and oriented X3 DS: Diagnosis Discharge Diagnosis (1) Atrial fibrillation with rapid ventricular response: Status: Acute Code(s): I48.91 - Unspecified atrial fibrillation (2) PAF (paroxysmal atrial fibrillation): Status: Chronic Code(s): I48.0 - Paroxysmal atrial fibrillation Meds Home Medications and Allergies Home Medications ?Medication ?Instructions ?Recorded ?Confirmed ?Type sertraline 25 mg tablet 25 mg PO DAILY 04/29/20 12/12/24 History norethindrone 1 mg-ethinyl 1 tab PO DAILY 12/12/24 12/12/24 History estradiol 10 mcg (24)-iron 10 mcg(2) tablet (Lo Loestrin Fe) rivaroxaban 20 mg tablet (Xarelto) 20 mg PO QPMWITHMEAL 12/12/24 12/12/24 History sotalol 80 mg tablet 80 mg PO BID #60 tabs 12/13/24 Rx New Prescriptions to Start Prescriptions: sotalol Shane Hall Allergies Allergy/AdvReac Type Severity Reaction Status Date / Time No Known Allergies Allergy Verified 12/12/24 01:13 Discharge Plan Disposition Patient Disposition: Home, Self-Care Condition: Good Follow up Plan Follow up with: Solange Rodriguez APRN [Nurse Practitioner, Cardiology] - 12/20/24 10:45 am Referral Note: in addition to your one week follow up please come to the cardiology office tomorrow December 14 at 9am for an EKG Shane Hall MD [Primary Care Provider, Medical] - 12/27/24 10:30 am Prescriptions/Medication Reconciliation: New sotalol 80 mg Tablet 80 mg PO BID Qty: 60 0RF Continued sertraline 25 MG tablet 25 mg PO DAILY Xarelto 20 mg tablet 20 mg PO QPMWITHMEAL Lo Loestrin Fe 1 mg-10 mcg (24)/10 mcg (2) tablet 1 tab PO DAILY Discontinued diltiazem HCl 120 mg capsule,extended release 24hr 120 mg PO DAILY Problem Reconciliation Problems Reviewed?: Yes Patient Discharge Instructions ACTIVITY: Limited activity DIET: continue same diet Patient Instructions: DI for Cardioversion, DI for Atrial Fibrillation, DI for Atypical Chest Pain Print Language: Thai Providers Primary Care Provider: Shane Hall Admit Provider: Shane Hall Attending Provider: Shane Hall
--- NOTE | 2024-12-15 10:49 | SW/DCPLANNER ---
Spoke with patient on the phone. Patient stated that she is doing good. Patient stated that she is aware of her upcoming appointments. Patient stated that she was able to get her new medicine picked up from clinic pharmacy. Patient stated that she has no concerns or questions at this time. Ambika Hensley
== END 2024-12-13 13:10 | disposition home or self-care (01) ==
LOC: ER 10:28 → ICU 10:49
PROVIDERS: Admitting Provider Family Medicine; Emergency Provider Student in an Organized Health Care Education/Training Program; PCP Family Medicine; Visit Provider Family Medicine
DX: I48.0 Paroxysmal atrial fibrillation (principal); I48.20 Chronic atrial fibrillation, unspecified; R06.02 Shortness of breath; R21 Rash and other nonspecific skin eruption; Z79.01 Long term (current) use of anticoagulants; Z79.83 Long term (current) use of bisphosphonates; Z79.899 Other long term (current) drug therapy; Z83.3 Family history of diabetes mellitus
CPT/HCPCS: 80053; 83735; 84484; 85025; 92960; 93005; 93306; 96374; 96375; 96376; 99291; G0378; J2405; J2550; J3010